=== PATIENT | female | born 1985 | race Caucasian/White ===

== ENCOUNTER → 2019-09-01 12:49 | Outpatient (CLI) | payer OTHER, MEDICAID, SELFPAY ==
--- NOTE | 2019-09-01 12:55 | XR_ITS ---
PROCEDURE: XR TIBIA FIBULA LT 2V CLINICAL INDICATION: Pain Posttraumatic pain COMPARISON: No exams were available for comparison FINDINGS: No fracture, dislocation, lytic change, or blastic change evident. No significant degenerative change IMPRESSION: Negative left tib fib Dictated by: Nacho Calderon MD 09/01/2019 15:36 Electronically signed by Nacho Calderon MD in [place] 09/01/2019 15:36
--- NOTE | 2019-09-01 12:55 | XR_ITS ---
PROCEDURE: XR FOOT WT BEARING LT 3V CLINICAL INDICATION: pain COMPARISON: XR FOOT LT MIN 3V from 08/30/2019 FINDINGS: No fracture or dislocation. No lytic or blastic change. There is normal mineralization. The joint spaces are well-preserved. No significant degenerative/arthritic changes. No erosive changes evident. Other findings:None. IMPRESSION: Negative left foot Dictated by: Nacho Calderon MD 09/01/2019 15:37 Electronically signed by Nacho Calderon MD in [place] 09/01/2019 15:38
== END ==
PROVIDERS: PCP Family Medicine; Visit Provider Podiatrist
DX: M25.572 Pain in left ankle and joints of left foot (principal); M79.672 Pain in left foot
CPT/HCPCS: 73590; 73630

== ENCOUNTER 2019-09-28 08:22 | Outpatient (RCR) | payer OTHER, SELFPAY ==
--- NOTE | 2019-09-28 09:04 | HMH.PTOPEV ---
PT Outpatient Evaluation Rehab PT Outpatient Evaluation Start: 09/28/19 08:55 Freq: Status: Active Protocol: Document 09/28/19 08:55 DONI (Rec: 09/28/19 09:04 DONI [id number]) Electronically Signed By Piero Carter, PT 09/28/19 08:55 Outpatient Therapy Subjective History Subjective History Pt reports tripping and spraining L ankle on 08/30/19. Pt reports 'inverting' L ankle during the injury, and reports 'it had been getting better, but I walked yesterday without anything on it, and now it's hurting more on the outside now.' Pt reports recent Xrays revealed no fx's. Chief Complaint Pain,Stiff,Swelling,Weakness Symptom Type Ache,Throb,Sharp,Dull,Tingling Symptoms Relieved By Rest/Positioning,Ice Symptoms Aggravated By Standing,Walking Prior Functional Limitations Housework,Standing,Walking Current Functional Limitations Housework,Standing,Walking Symptom Description Constant but Variable Level of pain today (0-10) 2 Pain scale - at its best (0-10) 0 Pain scale - at its worst (0-10) 6 Ankle/Foot Eval Gait Observation General Gait Pattern Observation Antalgic Gait Palpation Tenderness left Ankle/Foot Palpation Findings Tenderness Ankle/Foot Palpation Overall Comment 2-3/4 peroneal insertion, ant. tibialis insertion ATF TTP positive ROM Ankle/Foot Dorsiflexion w/Knee Extended 0-12 Active Range Motion (degrees) Ankle/Foot Plantar Flexion Active Range 0-50 of Motion (degrees) Ankle/Foot Eversion Active Range of 0-10 Motion (degrees) Ankle/Foot Inversion Active Range of 0-25 Motion (degrees) Ankle/Foot ROM Limitations Pain MMT Ankle Dorsiflexion Strength Grade 4 Good Ankle Plantarflexion Strength Grade 4 Good Foot Eversion Strength Grade 4- Good- Foot Inversion Strength Grade 4- Good- Special Tests Ankle Anterior Drawer Test Positive Left Talar Tilt Test Positive Left Outpatient Therapy Assessment Impairments Problems/Impairmments Palpation Tenderness,Impaired Range of Motion,Impaired Strength,Impaired Gait Pattern ,Impaired Walking,Impaired Standing,Impaired Household Care,Increased Edema, Subjective C/O Pain,Impaired Self Care/Self Management Prognosis Rehab Potential Good
== END 2019-09-28 08:27 | disposition home or self-care (01) ==
LOC: PT 08:22
PROVIDERS: PCP Family Medicine; Visit Provider Podiatrist
DX: M25.572 Pain in left ankle and joints of left foot (principal)
CPT/HCPCS: 97163

== ENCOUNTER → 2019-11-03 10:36 | Outpatient (POV) | payer OTHER, SELFPAY | PROVIDERS: Visit Provider Dermatology | DX: Z00.00 Encounter for general adult medical examination without abnormal findings (principal) ==

== ENCOUNTER → 2022-12-14 10:11 | Outpatient (CLI) | payer OTHER, SELFPAY ==
--- NOTE | 2022-12-14 | US_ITS ---
FINAL REPORT CLINICAL HISTORY: .pelvic pain FINDINGS: Transvaginal sonographic images of the pelvis were obtained. The uterus is somewhat enlarged, measuring 10.0 x 5.4 x 5.3 cm. The endometrium measures 15 mm, which is borderline thickened. There is somewhat heterogeneity of the uterine echotexture of uncertain significance. Adenomyosis is not excluded. A scar is noted. There are multiple nabothian cysts in the fundus. The right ovary measures 2.2 cm in length and left ovary measures 2.8 cm in length. Normal blood flow seen to the ovaries. There is no evidence of free fluid. IMPRESSION: Somewhat enlarged uterus with heterogeneous echotexture of uncertain significance, adenomyosis is not excluded. Borderline thickening of the endometrium. Reviewed, Interpreted and Dictated by Maverick Brock III, MD Transcribed by Jessica Tobin Authenticated and [facility]
== END ==
PROVIDERS: PCP Nurse Practitioner Family; Visit Provider Nurse Practitioner Family
DX: R10.2 Pelvic and perineal pain (principal)
CPT/HCPCS: 76830

== ENCOUNTER 2024-02-21 16:09 | Emergency (ER) | payer OTHER, SELFPAY ==
[2024-02-21 16:20] VITALS: BP 169/105; PULSE 92; RESP 16; TEMP 36.8; O2SAT 98; BMI 36.3
[2024-02-21 16:30] VITALS: BP 152/103; PULSE 85; O2SAT 97
--- NOTE | 2024-02-21 16:32 | PC.NURSE ---
DR BARRIOS AT BEDSIDE
--- NOTE | 2024-02-21 16:36 | CT_ITS ---
PROCEDURE INFORMATION: Exam: CT Abdomen And Pelvis With Contrast Exam date and time: 02/21/2024 5:08 PM Age: 38 years old Clinical indication: Abdominal pain; Epigastric; Additional info: Epigastric pain rad to back TECHNIQUE: Imaging protocol: Computed tomography of the abdomen and pelvis with contrast. Radiation optimization: All CT scans at this facility use at least one of these dose optimization techniques: automated exposure control; mA and/or kV adjustment per patient size (includes targeted exams where dose is matched to clinical indication); or iterative reconstruction. Contrast material: ISOVUE; Contrast volume: 75 ml; Contrast route: IV; COMPARISON: No relevant prior studies available. FINDINGS: Diaphragm: Tiny hiatal hernia. Liver: Mild hepatic steatosis. No liver lesions or hepatomegaly. Gallbladder and bile ducts: Status post cholecystectomy. No significant biliary ductal dilitation. Pancreas: Normal. No ductal dilation. Spleen: Normal. No splenomegaly. Adrenal glands: Normal. No mass. Kidneys and ureters: Normal. No hydronephrosis. Stomach and bowel: Unremarkable. No obstruction. No mucosal thickening. Appendix: No evidence of appendicitis. Intraperitoneal space: Unremarkable. No free air. No significant fluid collection. Vasculature: Minimal atherosclerotic disease without aneurysm. Lymph nodes: Unremarkable. No enlarged lymph nodes. Urinary bladder: Unremarkable as visualized. Reproductive: Unremarkable as visualized. Bones/joints: Mild L4-L5 and moderate L5-S1 degenerative disc disease. Soft tissues: Diastasis of the inferior rectus abdominis muscles with intraperitoneal fat herniating between the muscles and extending laterally anterior to the muscles. Surgical clip adjacent to the left rectus abdominis muscle. IMPRESSION: 1. No acute findings. 2. Mild hepatic steatosis. 3. Status post cholecystectomy. No biliary ductal dilatation.
--- NOTE | 2024-02-21 16:44 | ED_ITS ---
Discharge Plan Disposition Patient Disposition: Home, Self-Care Condition: Good Prescriptions Prescriptions: New pantoprazole 40 mg tablet,delayed release (DR/EC) 40 mg PO DAILY Qty: 30 0RF ondansetron HCl 4 mg tablet 4 mg PO Q8H PRN (Reason: nausea and vomiting) 4 Days Qty: 12 0RF No Action metoprolol succinate 50 mg tablet extended release 24 hr 50 mg PO DAILY Patient Comments: TAKE 1 TABLET BY MOUTH ONCE DAILY norethindrone (contraceptive) 0.35 mg tablet 0.35 mg PO DAILY Qty: 84 3RF Referrals Follow up/Referrals: Chirag Kamara MD [Primary Care Provider] - See instructions Activity Restrictions/Add. Instructions Additional Instructions/Restrictions: You were evaluated in the emergency department today. Please follow-up closely with your primary care provider. They can refer you to gastroenterology or general surgery for further evaluation and management as they see fit. Eat a bland diet. Try eating smaller, more frequent meals. 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 Take Zofran as needed for nausea. Avoid NSAIDs such as ibuprofen and Aleve. Return to the emergency department for new or worsening symptoms. Clinical Impressions Clinical Impression: Intermittent upper abdominal pain Stand Alone Forms Stand Alone Forms: Work/School Release Instructions Patient Instructions: DI for Acute Abdominal Pain Discharge ED Provider: Dominga Moe General Adult HPI General Chief complaint: Abdominal Pain Stated complaint: abd pain up to throat on Time Seen by Provider: 02/21/24 16:20 Mode of Arrival: Ambulatory Source of Information: Spouse Limitations: No Limitations Description of Symptoms (Recalled from ER Triage Doc. by RN): PT C/O UPPER ABDOMINAL/EPIGASTRIC PAIN THAT IS SQUEEZING. PAIN RADIATES TO BACK. STARTED AROUND EASTER. OCCASIONAL WORSE AFTER EATING. History of Present Illness HPI narrative: This patient is a 38-year-old female with a history of obesity, endometriosis, hypertension, and prior cholecystectomy presenting to the emergency department for evaluation with concern for upper abdominal pain. Patient reports that since and eating a lot of barbecue and Easter gathering, she has had intermittent epigastric pain radiating to her back. Sometimes it radiates up into her throat. She states that she thought maybe it was heartburn, so she took Tums, Zantac, and Prilosec with no improvement. She is also tried Tylenol and ibuprofen, but the pain continues. It seems to be made worse by eating. She notes that sometimes it also is in her right upper quadrant and her left upper quadrant. No fevers, vomiting, changes bowel movements, or other concerns. She does have nausea associate with this. Of note, she states that when she had her gallbladder issue, she did have gallstone pancreatitis and this feels similar to that. She notes that she stopped taking her blood pressure medication because she thought this could have been causing her issues, but she denies any other medication changes as of late. Related Data Home Medications Medication Instructions Recorded Confirmed metoprolol succinate 50 mg 50 mg PO DAILY 01/01/23 01/01/23 tablet,extended release 24 hr Previous Rx's Medication Instructions Recorded norethindrone (contraceptive) 0.35 0.35 mg PO DAILY #84 tabs 01/01/23 mg tablet ondansetron HCl 4 mg tablet 4 mg PO Q8H PRN nausea and 02/21/24 vomiting 4 days #12 tabs pantoprazole 40 mg tablet,delayed 40 mg PO DAILY #30 tabs 02/21/24 release Allergies Allergy/AdvReac Type Severity Reaction Status Date / Time Penicillins [PENICILLINS] Allergy Mild Verified 01/01/23 09:12 [facility] Disclaimer: The information contained in this section may have been updated after the patient was seen, as this information can be updated by other users. Medical History Migraine Ocular migraine Endometriosis Pelvic pain delivery delivered Sprain of deltoid ligament of left ankle, subsequent encounter Sprain of anterior talofibular ligament of left ankle Ankle sprain and strain Surgical History History of cholecystectomy Family History Other Coronary artery disease Diabetes FHx: mental illness Heart attack Hyperlipidemia Hypertension Thyroid disorder Social History Smoking Status: Never smoker alcohol intake: never substance use type: denies use current occupational status: unemployed Travel in the last 8 weeks: None household members: family housing: house ROS Obtained: Yes All systems reviewed & no additional complaints except as documented Physical Exam General General appearance: alert, in no apparent distress and obese Head Head exam: atraumatic and normocephalic Eye Eye exam: Present normal appearance, PERRL and EOMI ENT ENT exam: Present normal exam, normal oropharynx, mucous membranes moist and normal external ear exam Neck Neck exam: Present normal inspection, full ROM and trachea midline; Absent tenderness Chest Chest inspection: Present normal inspection and symmetric chest wall rise; Absent tenderness Respiratory Respiratory exam: Present normal lung sounds bilaterally; Absent respiratory distress, wheezes, stridor or accessory muscle use Cardiovascular Cardiovascular exam: Present regular rate and normal rhythm Abdominal Exam Abdominal exam: Present soft; Absent distention, tenderness or guarding Extremities Exam Extremities exam: Present normal inspection, full ROM and normal capillary refill; Absent tenderness or edema Back Exam Back exam: Present normal inspection and full ROM; Absent tenderness Neurological Exam Neurological exam: Present alert, oriented X3, CN II-XII intact and normal gait; Absent motor sensory deficit Psychiatric Psychiatric exam: Present normal affect and normal mood Skin Skin exam: Present warm and dry Medical Decision Making Medical Records Medical records reviewed: Yes I reviewed the patient's medical records. Connor Inquiry Pt receiving controlled substance: No Vital Signs: 02/21/24 16:20 02/21/24 16:30 02/21/24 17:00 Temperature 98.2 F Temperature Source Oral Pulse Rate 85 85 Pulse Rate [Radial] 92 H Respiratory Rate 16 Blood Pressure 152/103 H 141/103 H Blood Pressure [Right Arm] 169/105 H Blood Pressure Mean 123 117 Blood Pressure Mean [Right Arm] 126 Blood Pressure Source Blood Pressure Source [Right Arm] Automatic Cuff Blood Pressure Position [Right Arm] Sitting 02 Sat by Pulse Oximetry 98 97 97 Oxygen Delivery Method Room Air 02/21/24 18:00 02/21/24 18:33 Temperature 98.0 F Temperature Source Oral Pulse Rate 80 80 Pulse Rate [Radial] Respiratory Rate 18 18 Blood Pressure 139/99 H 138/98 H Blood Pressure [Right Arm] Blood Pressure Mean 109 Blood Pressure Mean [Right Arm] Blood Pressure Source Automatic Cuff Blood Pressure Source [Right Arm] Blood Pressure Position [Right Arm] 02 Sat by Pulse Oximetry 100 Oxygen Delivery Method Room Air Lab Data Lab results reviewed: Yes I reviewed the patient's lab results. Lab Results 02/21/24 16:30: WBC 9.6, RBC 4.68, Hgb 14.6, Hct 43.4, MCV 92.6, MCH 31.1, MCHC 33.6, RDW 13.4, Plt Count 409, MPV 7.5, Neut % (Auto) 61.7, Lymph % (Auto) 26.1, [place] % (Auto) 6.2, Eos % (Auto) 5.3, Baso % (Auto) 0.7, Neut # (Auto) 5.9, Lymph # (Auto) 2.5, [place] # (Auto) 0.6, Eos # (Auto) 0.5 H, Baso # (Auto) 0.1, Sodium 140, Potassium 4.2, Chloride 107, Carbon Dioxide 26, Anion Gap 11.2, BUN 15, Creatinine 0.90, Estimated Creat Clear 111, Estimated GFR 71, Est GFR ( Amer) 86, Glucose 131 H, Calcium 9.5, Total Bilirubin 0.3, AST 40 H, ALT 61, Alkaline Phosphatase 86, Troponin I < 0.01, Total Protein 8.0, Albumin 4.5, G lobulin 3.5 H, Albumin/Globulin Ratio 1.3, Lipase 274, Serum HCG, Qual Negative 02/21/24 17:40: Urine Color Yellow, Urine Appearance Clear, Urine pH 6.5, Ur Specific [place] <= 1.005, Urine Protein Negative, Urine Glucose (UA) Negative, Urine Ketones Negative, Urine Blood 2+, Urine Nitrate Negative, Urine Bilirubin Negative, Urine Urobilinogen 0.2, Ur Leukocyte Esterase Negative, Urine RBC 3-5, Urine WBC None, Ur Squamous Epith Cells Occasional, Urine Bacteria None 02/21/24 16:30 02/21/24 16:30 Orders (Tests/Meds): ED MEDICATIONS Discontinued Medications Generic Name Dose Route Start Last Admin Trade Name Freq PRN Reason Stop Dose Admin Belladonna Alkaloids 60 ml 02/21/24 16:37 02/21/24 16:49 Belladonna Alkaloids 60 Ml Ml PO 02/21/24 16:38 60 ml ONCE ONE Administration Famotidine 20 mg 02/21/24 16:37 02/21/24 16:50 Famotidine 20mg/2ml Vial IV 02/21/24 16:38 20 mg ONCE ONE Administration Lactated Ringer's 1,000 mls @ 999 mls/hr 02/21/24 16:37 02/21/24 16:49 Lactated Ringer's 1000 Ml Bag IV 02/21/24 17:37 999 mls/hr .Q1H1M ONE Administration Metoclopramide HCl 5 mg 02/21/24 16:38 02/21/24 16:49 Metoclopramide Hcl 10mg/2ml Vial IVP 02/21/24 16:39 5 mg ONCE ONE Administration Sodium Chloride 8 ml 02/21/24 16:37 Sodium Chloride 0.9% 10ml Vial IV 03/22/24 16:36 NEEDED PRN dilute pepcid ORDERS Category Date Time Status CT abdomen pelvis w con Stat Cat Scan 02/21/24 16:36 Completed Complete Blood Count Auto Diff Stat Lab 02/21/24 16:30 Completed Comprehensive Metabolic Panel Stat Lab 02/21/24 16:30 Completed Lipase Stat Lab 02/21/24 16:30 Completed Serum [HCG Qualitative, Serum] Stat Lab 02/21/24 16:30 Completed Troponin I Stat Lab 02/21/24 16:30 Completed Urinalysis and Microscopic Stat Lab 02/21/24 17:40 Completed ECG Data Tracing #1: I reviewed this ECG and interpreted as documented below: Normal sinus rhythm with a ventricular rate of [address] changes concerning for ischemia. Normal axis and intervals. ECG initial impression date: 02/21/24 ECG initial impression time: 17:03 Medical Decision Narrative: In summary, this patient is a 38-year-old female presenting to the Emergency Department for evaluation of epigastric abdominal pain radiating to her back and up into her throat. Differential diagnoses considered include but are not limited to pancreatitis, hepatitis, GERD, peptic ulcer disease, gastroparesis, ACS. Ruling out the most morbid conditions drove assessment. It should be noted patient's history includes obesity and hypertension which are not at goal therapy. This complicates all aspects of care by increasing patient's risk for morbidity. I reviewed patient's past medical records and noted previous cardiology evaluation at which point the patient was given a traffic monitor specialist. On exam, the patient is well-appearing with reassuring vital signs on cardiac telemetry. Cardiopulmonary and abdominal exams are benign. Workup included CBC, CMP, lipase, test, troponin, EKG, urinalysis, and CT abdomen pelvis with IV contrast. She was given a bolus of IV fluids as well as IV Pepcid, Reglan, and an oral GI cocktail. I independently interpreted CT scan prior to the radiologist read and noted no obvious acutely concerning abnormalities such as obstruction or inflammation. Please see their read for final interpretation. they noted hepatic steatosis, which I notified the patient of. Advise dietary changes.. Labs were obtained that demonstrated mildly elevated AST, likely related to hepatic steatosis. On reassessment, patient is resting comfortably with benign abdominal exam. At this time, feel that she is appropriate for discharge. Advised that she follow- up very closely with GI for further evaluation and management, as she may benefit from endoscopy or other testing to evaluate why she has this persistent gastric pain. She was given strict return precautions and was discharged with prescription for PPI and Zofran. Critical Care Critical Care Time Critical Care Time: No
[2024-02-21 16:45] LABS: Basophils # 0.1 K/mm3 (0-0.2); Basophils % 0.7 % (0.1-2.0); Eosinophils # 0.5 K/mm3 (0.0-0.4); Eosinophils % 5.3 % (0.1-12.0); Hematocrit 43.4 % (37.0-47.0); Hemoglobin 14.6 g/dL (12.2-16.2); Lymphocytes # 2.5 K/mm3 (0.7-4.5); Lymphocytes % 26.1 % (10-50); Mean Corpuscular HGB Conc 33.6 g/dL (31.8-35.4); Mean Corpuscular Hemoglobin 31.1 pg (27.0-31.2); Mean Corpuscular Volume 92.6 fl (81-99); Mean Platelet Volume 7.5 fl (7.4-10.4); Monocytes # 0.6 K/mm3 (0.1-1.0); Monocytes % 6.2 % (1.7-9.3); Neutrophils # 5.9 K/mm3 (1.8-7.8); Neutrophils % 61.7 % (37.0-80.0); Platelet Count 409 K/mm3 (142-424); Red Blood Count 4.68 M/mm3 (4.20-5.40); Red Cell Distribution Width 13.4 % (11.5-17.5); White Blood Count 9.6 K/mm3 (4.8-10.8)
[2024-02-21 16:48] LABS: Chloride 107 mmol/L (98-107); Potassium 4.2 mmoL/L (3.5-5.1); Sodium 140 mmol/L (136-145)
[2024-02-21] MEDS: LACTATED RINGERS 1000ML 1,000 ML 999 ML IV (16:49)
[2024-02-21] MEDS: BELLADONNA ALKALOIDS 60 ML ML PO (16:49)
[2024-02-21] MEDS: METOCLOPRAMIDE HCL 10MG/2ML VIAL 5 MG IVP (16:49)
[2024-02-21 16:50] LABS: Alanine Aminotransferase 61 U/L (12-78); Aspartate Amino Transferase 40 U/L (14-36); Blood Urea Nitrogen 15 mg/dl (7-17); Creatinine Clearance Estimated 111 mL/min (50-200); Estimated Glomerular Filt Rate 71 ml/min (>60); GFR (African American) 86 ML/MIN (>60)
[2024-02-21] MEDS: FAMOTIDINE 20MG/2ML VIAL 20 MG IV (16:50)
[2024-02-21 16:51] LABS: Albumin Level 4.5 g/dl (3.5-5.0); Albumin/Globulin Ratio 1.3 (1.1-1.8); Alkaline Phosphatase 86 U/L (38-126); Anion Gap 11.2 mEq/L (5-15); Bilirubin,Total 0.3 mg/dl (0.2-1.3); Calcium 9.5 mg/dl (8.4-10.2); Carbon Dioxide 26 mmol/L (22.0-30.0); Globulin 3.5 g/dL (1.3-3.2); Glucose 131 mg/dl (74-100); Lipase 274 U/L (23-300)
[2024-02-21 16:53] LABS: HCG Qualitative, Serum Negative (Negative)
[2024-02-21 17:00] VITALS: BP 141/103; PULSE 85; O2SAT 97
--- NOTE | 2024-02-21 17:02 | ECG_ITS ---
APPROVED REPORT Exam: Resting ECG HR:86 bpm ECG Measurements Heart Rate 86 AXES AK 156 P 60 QRSd 79 QRS 50 QT 380 T 55 QTc 423 Conclusion SINUS RHYTHM LOW QRS VOLTAGE IN PRECORDIAL LEADS [QRS DEFLECTION < 1.0 mV IN CHEST LEADS] BORDERLINE ECG Electronically signed by : EWA BARRIOS, 02/22/2024 01:27:36
--- NOTE | 2024-02-21 17:04 | PC.NURSE ---
PT TO CT
[2024-02-21 17:11] LABS: Troponin I < 0.01 ng/ml (0.00-0.034)
--- NOTE | 2024-02-21 17:38 | PC.NURSE ---
PT TO BR
--- NOTE | 2024-02-21 17:41 | PC.NURSE ---
PT PROVIDED WATER AT THIS TIME
[2024-02-21 17:44] LABS: Microscopic, Urine URINE MICROSCOPIC (MICROSCOPIC)
[2024-02-21 18:00] VITALS: BP 139/99; PULSE 80; RESP 18; O2SAT 100
[2024-02-21 18:19] LABS: Appearance,Urine CLEAR (Clear); Bilirubin,Urine Negative (Negative); Blood, Urine 2+ (Negative); Color,Urine YELLOW (Yellow); Glucose,Urine (UA) Negative (Negative); Ketones,Urine Negative (Negative); Leukocyte Esterase,Urine Negative (Negative); Nitrate,Urine Negative (Negative); PH,Urine 6.5 (5.0-8.5); Protein,Urine Negative (Negative); Specific Gravity, Urine <= 1.005 (1.005-1.030); Urobilinogen,Urine 0.2 EU/dl (0.2)
[2024-02-21 18:33] VITALS: BP 138/98; PULSE 80; RESP 18; TEMP 36.7; O2SAT 98
[2024-02-21 18:33] LABS: Squamous Epithelial Cell,Urine Occasional #/hpf (0-5)
== END 2024-02-21 18:46 | disposition home or self-care (01) ==
PROVIDERS: Emergency Provider Emergency Medicine; PCP Internal Medicine Adolescent Medicine
DX: R10.10 Upper abdominal pain, unspecified (principal); K76.0 Fatty (change of) liver, not elsewhere classified; I10 Essential (primary) hypertension
CPT/HCPCS: 74177; 80053; 81001; 83690; 84484; 84703; 85025; 93005; 96361; 96374; 96375; 99284; J7120

== ENCOUNTER 2024-03-26 11:15 | Outpatient (CLI) | payer OTHER, SELFPAY ==
--- NOTE | 2024-03-26 11:20 | XR_ITS ---
FINAL REPORT CLINICAL HISTORY: WHEEZING ON AUSCULATION COMPARISON: None FINDINGS: No acute pulmonary density is evident. There is no evidence of effusion or other pleural disease. The mediastinum has a normal appearance. The cardiac silhouette is unremarkable. IMPRESSION: Unremarkable chest exam. Reviewed, Interpreted and Dictated by Ophelia Lane MD Transcribed by Meghan Nixon Authenticated and [facility]
== END 2024-03-26 23:59 | disposition home or self-care (01) ==
LOC: RAD 11:17
PROVIDERS: PCP Internal Medicine Adolescent Medicine; Visit Provider Physician Assistant
DX: R06.2 Wheezing (principal)
CPT/HCPCS: 71046

== ENCOUNTER 2024-08-24 20:03 | Emergency (ER) | payer OTHER, SELFPAY ==
--- NOTE | 2024-08-24 20:07 | ED_ITS ---
<Statement entered by Dominga Moe DO - 08/24/24 22:55> I was consulted by the RIGO, and we discussed the complexity of the problems being addressed. I approved the treatment and management plan for this patient's care in the emergency department, thus performing a substantive portion of the medical decision making. Dominga Moe DO Discharge Plan Prescriptions Prescriptions: New sulfamethoxazole-trimethoprim [Bactrim DS] 800-160 mg tablet 1 tab PO BID 10 Days Qty: 20 0RF No Action metoprolol succinate 50 mg tablet extended release 24 hr 50 mg PO DAILY Patient Comments: TAKE 1 TABLET BY MOUTH ONCE DAILY norethindrone (contraceptive) 0.35 mg tablet 0.35 mg PO DAILY Qty: 84 3RF pantoprazole 40 mg tablet,delayed release (DR/EC) 40 mg PO DAILY Qty: 30 0RF ondansetron HCl 4 mg tablet 4 mg PO Q8H PRN (Reason: nausea and vomiting) 4 Days Qty: 12 0RF Referrals Follow up/Referrals: Chirag Kamara MD [Primary Care Provider] - See instructions Activity Restrictions/Add. Instructions Additional Instructions/Restrictions: As we discussed follow-up with your surgeon tomorrow regarding your surgical site infection. Return to ER for any worsening signs or symptoms including pain redness or drainage fever. Clinical Impressions Clinical Impression: Surgical site infection Instructions Patient Instructions: DI for Skin Abscess Print Language Print Language: Puerto Rican Discharge ED Provider: Dominga Moe General Adult HPI General Chief complaint: Skin/Abscess/Foreign Body Stated complaint: post op 7wks incision in navel w/puss/tender/red Time Seen by Provider: 08/24/24 20:06 History of Present Illness HPI narrative: Patient presents for evaluation of a surgical site infection. Patient had a laparoscopic procedure approximately 7 weeks ago by [facility] in [place]. At her 4-week follow-up she had a developing umbilical trocar site superficial infection. Her surgeon put her on a 5-day course of Keflex. At the time she had a very large area of erythema and induration but no abscess. Patient reports that she took all of her antibiotics and the affected area diminished greatly however she is still having subjective drainage and pain at the trocar site. She denies any fever chills hemoptysis hematochezia melena nausea vomiting diarrhea. She is tolerating oral intake and passing flatus and stool. Related Data Home Medications ?Medication ?Instructions ?Recorded ?Confirmed metoprolol succinate 50 mg 50 mg PO DAILY 01/01/23 01/01/23 tablet,extended release 24 hr Previous Rx's ?Medication ?Instructions ?Recorded norethindrone (contraceptive) 0.35 0.35 mg PO DAILY #84 tabs 01/01/23 mg tablet ondansetron HCl 4 mg tablet 4 mg PO Q8H PRN nausea and 02/21/24 vomiting 4 days #12 tabs pantoprazole 40 mg tablet,delayed 40 mg PO DAILY #30 tabs 02/21/24 release sulfamethoxazole 800 1 tab PO BID 10 days #20 tabs 08/24/24 mg-trimethoprim 160 mg tablet (Bactrim DS) Allergies Allergy/AdvReac Type Severity Reaction Status Date / Time Penicillins (PENICILLINS) Allergy Mild Verified 01/01/23 09:12 [facility] Disclaimer: The information contained in this section may have been updated after the patient was seen, as this information can be updated by other users. Medical History Migraine Ocular migraine Endometriosis Pelvic pain delivery delivered Sprain of deltoid ligament of left ankle, subsequent encounter Sprain of anterior talofibular ligament of left ankle Ankle sprain and strain Surgical History History of cholecystectomy Family History Other Coronary artery disease Diabetes FHx: mental illness Heart attack Hyperlipidemia Hypertension Thyroid disorder Social History Smoking Status: Never smoker alcohol intake: never substance use type: denies use current occupational status: unemployed household members: family housing: house Other Medical History Have you received the Flu Vaccine for this season: No Have you received the Pneumonia Vaccine: No ROS Obtained: Yes Systems reviewed as appropriate & no additional complaints except as documented Physical Exam General General appearance: alert and in no apparent distress Respiratory Respiratory exam: Present normal lung sounds bilaterally Cardiovascular Cardiovascular exam: Present regular rate Neurological Exam Neurological exam: Present alert and oriented X3 Medical Decision Making Medical Records Screening: Per USPSTF and CDC recommendations, given the prevalence of disease in our region, it is our hospital?s policy to screen for HIV and viral Hepatitis for all patients aged 18 and over and those with ongoing risk factors. Connor Inquiry Pt receiving controlled substance: No Vital Signs: 08/24/24 20:15 08/24/24 20:32 Temperature 98.2 F 98.2 F Temperature Source Oral Pulse Rate 97 H Pulse Rate [Right] 97 H Respiratory Rate 20 18 Blood Pressure 165/109 H Blood Pressure [Right Arm] 165/109 H Blood Pressure Mean [Right Arm] 127 02 Sat by Pulse Oximetry 97 Oxygen Delivery Method Room Air Orders (Tests/Meds): ED MEDICATIONS Discontinued Medications Generic Name Dose Route Start Last Admin Trade Name Freq PRN Reason Stop Dose Admin Trimethoprim/Sulfamethoxazole 1 each 08/24/24 20:25 Sulfa/Trimethoprim 1 Tablet PO 08/24/24 20:26 ONCE ONE Medical Decision Narrative: In summary patient is a 39-year-old female who presents to the emergency department for evaluation of a slight infection. Patient is hemodynamically stable upon arrival, febrile. Physical exam is remarkable for erythema at the trocar site. There is a honey crusted scab in the center of the umbilicus but no fluctuance no induration there is slight erythema but it does not expand more than a centimeter beyond trocar site.. Differential diagnosis includes resolving infection versus dehiscence versus stitch abscess etc. Initial workup was consi dered with labs and imaging however patient has no red flags including expanding erythema induration fever or fluctuance thus deferred. Given the lack of red flags for any significant serious or life-threatening red flags patient will be referred back to her general surgeon first thing in the morning. We will start the patient on Bactrim as she had a good response from the Keflex by the patient's report however it is possible that the antibiotic course of 5 days was too short. Thus patient was given the first dose of Bactrim with prescription sent to her pharmacy and strict return precautions. Critical Care Critical Care Time Critical Care Time: No
[2024-08-24 20:15] VITALS: BP 165/109; PULSE 97; RESP 20; TEMP 36.8; O2SAT 97; BMI 35.9
[2024-08-24 20:32] VITALS: BP 165/109; PULSE 97; RESP 18; TEMP 36.8; O2SAT 97
[2024-08-24] MEDS: SULFA/TRIMETHOPRIM 1 TABLET 1 EACH PO (20:38)
== END 2024-08-24 20:40 | disposition home or self-care (01) ==
LOC: ER 20:37
PROVIDERS: Emergency Provider Emergency Medicine; PCP Internal Medicine Adolescent Medicine
DX: T81.49XA Infection following a procedure, other surgical site, initial encounter (principal)
CPT/HCPCS: 99283

== ENCOUNTER 2025-06-07 10:55 | Outpatient (CLI) | payer OTHER, SELFPAY ==
--- OUTSIDE RECORDS SUMMARY | 2025-04-27 16:00 | XMS_ITS | Encounter Summary ---
Author Organization Healthcare Address [address] [place] [address] Care Team Providers Care Design Teacher Name Role Phone Rimma Bryan MD Primary Care Provider [phone] Reason for Referral * Consultation (Routine) - Authorized Specialty Diagnoses / Procedures Referred By Contac t Referred To Contact Physical Therapy Diagnoses Pelvic and perineal pain Gibson Hollis MD [address] [place] [address] Phone: tel: fax: [facility] [address] [place] [address] Phone: tel: Referral ID Status Reason Start Date Expiration Date Visits Requested Visits Authorized [id number] Authorized Consult and Treat 04/27/2025 10/27/2026 1 1 Scheduling Instructions Pelvic Discomfort Reason for Visit * Reason Comments Groin Swelling swelling on right si de of vagina, in perineum, and rectumPressure and tender rating today 11/09 but if active day 03/09 Encounter Details Date Type Department Care Team (Late Contact Info) Description 04/27/2025 4:00 PM EDT Office Visit Obstetrics & Gynecology [address] [place] [address] Gibson Hollis MD [address] [place] [address] Pelvic and perineal pain (Primary Dx) Social History Tobacco Use Types Packs/Day Years Used Date Smoking Tobacco: Never Assessed PHQ-2 Answer Date Recorded Patient Health Questionnaire-2 Score 0 04/27/2025 PHQ-9 Answer Date Recorded Patient Health Questionnaire-9 Score 0 01/22/2025 Comments No Sex and Gender Information Value Date Recorded Sex Assigned at Not on file Legal Sex Female 5:56 PM EDT Gender Identity Not on file Sexual Orientation Not on file documented as of this encounter Last Filed Vital Signs Vital Sign Reading Time Taken Comments Blood Pressure 134/84 04/27/2025 4:00 PM EDT Pulse 113 04/27/2025 4:00 PM EDT Temperature 36.9 C (98.4 F) 04/27/2025 4:00 PM EDT Respiratory Rate - - Oxygen Saturation 98% 04/27/2025 4:00 PM EDT Inhaled Oxygen Concentration - - Weight 83.6 kg (184 lb 4.9 oz) 04/27/2025 4:00 P M EDT Height 149.9 cm (4' 11 ) 04/27/2025 4:00 PM EDT Body Mass Index 37.22 04/27/2025 4:00 PM EDT documented in this encounter Functional Status * Over the past 2 weeks, how often have you been bothered by any of the following problems? Question Answer Date of Assessment Author Little interest or pleasure in doing things Not at all 04/27/2025 4:01 PM EDT Guadalupe Church RN Feeling down, depressed, or hopeless Not at all 04/27/2025 4:01 PM EDT Guadalupe Church RN Patient Health Questionnaire -2 Score 0 04/27/2025 4:01 PM EDT Guadalupe Church RN documented as of this encounter Miscellaneous Notes * Progress Notes - Gibson Hollis MD - 04/27/2025 4:00 PM EDT Gynecology Progress Note Subjective 40 yo - 3+ m s/p TLH/BS - has had 2 UTI since - now with pelvic pain/pressure - worse at end of day - No dysuria - otherwise feels good. No F/C. Review of Systems Constitutional: Negative. HENT: Negative. Eyes: Negative. Respiratory: Negative. Cardiovascular: Negative. Gastrointestinal: Negative. Endocrine: Negative. Genitourinary: Positive for pelvic pain. Musculoskeletal: Negative. Skin: Negative. Allergic/Immunologic: Negative. Neurological: Negative. Psychiatric/Behavioral: Negative. All other systems reviewed and are negative. Objective Visit Vitals BP 134/84 Pulse (!) 113 Temp 36.9 ??C (98.4 ??F) Physical Exam Constitutional: Appearance: Normal appearance. Genitourinary: Vulva, bladder and urethral meatus normal. No lesions in the vagina. Right Labia: No rash, tenderness, lesions or skin changes. Left Labia: No tenderness, lesions, skin changes or rash. No vaginal discharge, erythema or tenderness. No vaginal prolapse present. No vaginal atrophy present. Right Adnexa: not tender and no mass present. Left Adnexa: not tender and no mass present. Cervix is absent. Uterus is absent. Pelvic exam was performed with patient in the lithotomy position. HENT: Head: Normocephalic and atraumatic. Right Ear: External ear normal. Left Ear: External ear normal. Pulmonary: Effort: Pulmonary effort is normal. Abdominal: General: Abdomen is flat. Palpations: Abdomen is soft. Musculoskeletal: General: Normal range of motion. Cervical back: Normal range of motion. Neurological: General: No focal deficit present. Mental Status: She is alert and oriented to person, place, and time. Skin: General: Skin is warm and dry. Psychiatric: Mood and Affect: Mood normal. Behavior: Behavior normal. Thought Content: Thought content normal. Judgment: Judgment normal. Vitals and nursing note reviewed. Exam conducted with a informatics spec present. UA WNL Assessment/Plan Assessment & Plan Pelvic and perineal pain Orders: POCT Urinalysis Dipstick Ambulatory referral to Physical Therapy; Future Discussed EXAM findings Suspect Musculo-Skeletal Origin Refer to PFPT WWE as scheduled Voices agreement A total of 22 minutes was spent on this visit with at least more than 50% of the encounter spent incounseling and/or coordinating care including reviewing previous notes, counseling the patient on their identified issues as indicated in the note, discussing previous and/or ordered tests or imaging, prescribing/refilling medications, and documenting the findings in this note, as well as laying out a specific plan of action for this patient. documented in this encounter Plan of Treatment Upcoming Encounters Date Type Department Care Team (Late st Contact Info) Description 02/25/2026 9:15 AM EDT Office Visit Obstetrics & Gynecology [address] [place] [address] Gibson Hollis MD [address] [place] [address] Scheduled Referrals Name Type Priority Associated Diagnoses Order Schedule Ambulatory referral to Physical Therapy Outpatient Referral Routine Pelvic and perineal pain Expected: 04/27/2025 (Approximate), Expires: 10/28/2026 documented as of this encounter Procedures Procedure Name Priority Date/Time Associated Diagnosis Comments POCT URINALYSIS DIPSTICK Routine 04/27/2025 4:21 PM EDT Pelvic and perineal pain documented in this encounter Results * POCT Urinalysis Dipstick (04/27/2025 4:21 PM EDT) POCT Urine Color Yellow POCT Urine Clarity Clear POCT Glucose Urine Negative Negative mg/dL POCT Bilirubin, Urine Negative Negative POCT Ketones, Urine Negative Negative mg/dL POCT Specific [place], Urine 1.015 POCT Blood, Urine Negative Negative POCT pH, Urine 7.0 5.0 to 8.0 POCT Protein, Urine Negative Negative mg/dL POCT Urobilinogen, Urine 0.2 0.2, 1 E.U./dL POCT Nitrite, Urine Negative Negative POCT Leukocyte Esterase, Urine Negative Negative Test Strip Lot Number [id number] Test Strip Lot Expiration 12/27/25 Urine Urine specimen obtained by clean catch procedure / Unknown 04/27/2025 4:21 PM EDT us Gibson Hollis MD POINT OF CARE TEST ENTER/EDIT O RDERABLES Final Result documented in this encounter Visit Diagnoses Diagnosis Pelvic and perineal pain- Primary documented in this encounter Additional Health Concerns Assessment Noted Time PHQ-9 Depression Total Score: 0 01/23/20 8:44 AM EDT A fall risk assessment has been complete d for the patient 04/27/2025 4:01 PM EDT A Body Mass Index follow-up plan has been documented for the patient 04/27/2025 4:31 PM EDT documented as of this encounter Care Teams Design Teacher Relationship Specialty Start Date End Date Rimma Bryan MD [address] [place] [address] PCP - General 02/10/21 documented as of this encounter
[2025-06-07 15:39] LABS: Coronavirus 19, PCR Not Detected (NotDetected); Influenza A, PCR Not Detected (NotDetected); Influenza B, PCR Not Detected (NotDetected)
--- OUTSIDE RECORDS SUMMARY | 2025-06-08 09:57 | XMS_ITS | Encounter Summary ---
Author Organization Healthcare Address [address] [place] [address] Care Team Providers Care Silk Conditioner Name Role Phone Rimma Bryan MD Primary Care Provider [phone] Encounter Details Date Type Department Care Team (Late st Contact Info) Description 04/20/2025 Telephone Obstetrics & Gynecology [address] [place] [address] Gibson Hollis MD [address] [place] [address] Social History Tobacco Use Types Packs/Day Years [...] on file documented as of this encounter Functional Status * Over the [...] as of this encounter Miscellaneous Notes * Telephone Encounter - Viola Joseph - 04/20/2025 2:26 PM EDT Speaking with patient via my chart * Telephone Encounter - Lisa Kauffman - 04/20/2025 2:01 PM EDT Clinical Concern/Question Reason for Call: Pt is having pain and swelling and Dr Hollis needs to see her erica Best contact number: [phone] (mobile) Optimal time of day to reach caller: ANYTIME Additional comments/information from caller: None Note: Please do not reply to this message. Follow-up communication and further actions as a result of this message need to be communicated with the patient directly, if the patient is not active onMyChart. If the patient is active on MyChart, they will receive notification of the communication/outcome via [employer]. documented in this encounter Plan of Treatment Upcoming Encounters Date Type Department Care Team (Late st Contact Info) Description 02/25/2026 9:15 AM EDT Office Visit Obstetrics & Gynecology [address] [place] [address] Gibson Hollis MD [address] [place] [address] documented as of this encounter Visit Diagnoses Not on filedocumented in this encounter Additional Health Concerns Assessment Noted Time PHQ-9 Depression Total Score: 0 01/23/20 25 8:44 AM EDT A fall risk assessment has been complete d for the patient 02/23/2025 1:52 PM EDT A Body Mass Index follow-up plan has been documented for the patient 02/23/2025 2:07 PM EDT documented as of this encounter Care Teams Silk Conditioner Relationship Specialty Start Date End Date Rimma Bryan MD [address] [place] [address] PCP - General 02/10/21 documented as of this encounter
--- OUTSIDE RECORDS SUMMARY | 2025-06-08 09:57 | XMS_ITS | Encounter Summary ---
Author Organization Healthcare Address [address] [place] [address] Care Team Providers Care Matching Machine Operator Name Role Phone Rimma Bryan MD Primary Care Provider [phone] Encounter Details Date Type Department Care Team (Latest Contact Info) Description 04/27/2025 Travel Social History Tobacco Use Types Packs/Day Years [...] at all 04/27/2025 4:01 PM EDT Guadalupe Church, RN Patient Health Questionnaire -2 Score 0 04/27/2025 4:01 PM EDT Guadalupe Church, RN documented as of this encounter Plan of Treatment Upcoming Encounters Date Type Department Care Team (Late st Contact Info) Description 02/25/2026 9:15 AM EDT Office Visit Obstetrics & Gynecology [address] [place] [address] Gibson Hollis MD [address] [place] [address] documented as of this encounter Visit Diagnoses [...] documented as of this encounter Care Teams Matching Machine Operator Relationship Specialty Start Date End Date Rimma Bryan MD [address] [place] [address] PCP - General 02/10/21 documented as of this encounter
--- OUTSIDE RECORDS SUMMARY | 2025-06-08 09:57 | XMS_ITS | Clinical Summary ---
Author Organization [facility] Address [address] [place] [address] Care Team Providers Care Communications Operator Name Role Phone Rimma Brayn MD Primary Care Provider [phone] Allergies Active Allergy Reactions Criticality Noted Date Comments Gluten Meal Nausea High 07/03/2024 Lactose Nausea High 07/03/2024 Latex Rash Medium 07/03/2024 Nickel Rash Low 07/03/2024 Medications propranolol (Inderal) 10 MG tablet every 12 hours. 01/11/2025 Active Encounters Date Type Department Care Team Description 04/27/2025 4:00 PM EDT Office Visit Obstetrics & Gynecology [address] [place] [phone] Gibson Hollis MD Pelvic and perineal pain (Primary Dx) 04/27/2025 Travel 04/26/2025 Travel 04/20/2025 Telephone Obstetrics & Gynecology [address] [place] [address] Gibson Hollis MD from Last 3 Months Family History Medical History Relation Name Comments Conversions - Other Other No famil y history of malignant neoplasm Relation Name Status Comments Other Social History Tobacco Use Types Packs/Day Years [...] on file Sexual Orientation Not on file Last Filed Vital Signs Vital Sign Reading Time Taken Comments Blood Pressure 134/84 04/27/2025 4:00 PM EDT Pulse 113 04/27/2025 4:00 PM EDT Temperature 36.9 C (98.4 F) 04/27/2025 4:00 PM EDT Respiratory Rate 20 01/08/2025 11:18 AM EDT Oxygen Saturation 98% 04/27/2025 4:00 PM EDT Inhaled Oxygen Concentration - - Weight 83.6 kg (184 lb 4.9 oz) 04/27/2025 4:00 P M EDT Height 149.9 cm (4' 11 ) 04/27/2025 4:00 PM EDT Body Mass Index 37.22 04/27/2025 4:00 PM EDT Plan of Treatment Upcoming Encounters Date Type Department Care Team (Late st Contact Info) Description 02/25/2026 9:15 AM EDT Office Visit Obstetrics & Gynecology [address] [place] [address] Gibson Hollis MD [address] [place] [address] Health Maintenance Due Date Last Done Comments [facility]-HIV Screening 1987 [facility]-Hepatitis C Screening 1987 [facility]-/Child/Adol SDOH Screenings 1987 [facility]-Varicella Vaccines (1 of 2 - 13+ 2-dose series) 2000 [facility]- SDOH Screenings 2005 [facility]-Adult SDOH Screenings 2005 [facility]-DTaP,Tdap,and Td Vaccines (1 - Tdap) 2006 [facility]-Hepatitis B Vaccines (1 of 3 - 19+ 3-dose series) 2006 HPV Vaccines (1 - 3-dose SCDM series) 2014 [id number] Vaccine (2 - season) 2025 01/04/2021 [facility]-Influenza Vaccine (#1) 2025 [facility]-Depression Screening 04/27/2026 04/27/2025, 12/30 [facility]-Zoster Vaccines (1 of 2) 2037 [facility]-Obesity Intervention Completed 025, 02/23/2025, 02/11/2025, Additional history exists [facility]-HIB Vaccines Aged Out No longer e ligible based on patient's age to complete this topic [facility]-Hepatitis A Vaccines Aged Out No longer eligible based on patient's age to complete this topic [facility]-IPV Vaccines Aged Out No longer e ligible based on patient's age to complete this topic [facility]-Pneumococcal Vaccine: Pediatrics (0 to 5 Years) and At-Risk Patients (6 to 49 Years) Aged Out No longer eligible based on patient's age to complete this topic [facility]-Rotavirus Vaccines Aged Out No lo nger eligible based on patient's age to complete this topic Procedures Procedure Name Priority Date/Time Associated Diagnosis Comments POCT URINALYSIS DIPSTICK Routine 04/27/2025 4:21 PM EDT Pelvic and perineal pain from Last 3 Months Results * POCT Urinalysis Dipstick (04/27/2025 4:21 PM EDT) POCT Urine Color Yellow POCT Urine Clarity Clear POCT Glucose Urine Negative Negative mg/dL POCT Bilirubin, Urine Negative Negative POCT Ketones, Urine Negative Negative mg/dL POCT Specific [place], Urine 1.015 POCT Blood, Urine Negative Negative POCT pH, Urine 7.0 5.0 to 8.0 POCT Protein, Urine Negative Negative mg/dL POCT Urobilinogen, Urine 0.2 0.2, 1 E.U./dL POCT Nitrite, Urine Negative Negative POCT Leukocyte Esterase, Urine Negative Negative Test Strip Lot Number [id number] Test Strip Lot Expiration 12/27/25 Urine Urine specimen obtained by clean catch procedure / Unknown 04/27/2025 4:21 PM EDT Gibson Hollis MD POINT OF CARE TEST ENTER/EDIT O RDERABLES Final Result from Last [address] [address] [facility] [place] MEDICA[place] Care Teams Communications Operator Relationship Specialty Start Date End Date Rimma Bryan MD [address] [place], [place] [id number] PCP - General 02/10/21
--- OUTSIDE RECORDS SUMMARY | 2025-06-08 09:57 | XMS_ITS | Encounter Summary ---
Author Organization [facility] Address [address] [place] [address] Care Team Providers Care Beverage Host Name Role Phone Rimma Bryan MD Primary Care Provider [phone] Encounter Details Date Type Department Care Team (Latest Contact Info) Description 04/26/2025 Travel Social History Tobacco Use Types Packs/Day [...] on file documented as of this encounter Plan of Treatment Upcoming Encounters Date Type Department Care Team ( Contact Info) Description 02/25/2026 9:15 AM EDT Office Visit Obstetrics & Gynecology [address] [place] [address] Gibson Hollis MD [address] [place] [address] documented as of this encounter [...] documented as of this encounter Care Teams Beverage Host Relationship Specialty Start Date End Date Rimma Bryan MD [address] [place] [address] PCP - General 02/10/21 documented as of this encounter
== END 2025-06-07 23:59 ==
LOC: LAB.DROPOF 06-08 09:44
PROVIDERS: PCP Nurse Practitioner; Visit Provider Nurse Practitioner
DX: J06.9 Acute upper respiratory infection, unspecified (principal)
CPT/HCPCS: 87631

== ENCOUNTER 2025-07-04 12:37 | Emergency (ER) | payer OTHER, SELFPAY ==
[2025-07-04] VITALS (7 sets, daily range): BP systolic 148–176; BP diastolic 103–117; PULSE 86–107; RESP 15–16; TEMP 36.6–37.2; O2SAT 94–99; BMI 35.9
--- OUTSIDE RECORDS SUMMARY | 2025-07-04 12:52 | XMS_ITS | Clinical Summary ---
Author Organization [facility] ([place] Address [address] [place] [address] Care Team Providers Care Damage Inside Adjuster Name Role Phone Chirag Kamara MD Primary Care Provider Allergies Active Allergy Reactions Criticality Noted Date Comments Gluten Nausea Only High 07/03/2024 Lactose Nausea Only High 07/03/2024 Latex Rash Low 07/03/2024 Nickel Rash Low 07/03/2024 Medications albuterol 90 mcg/actuation inhaler Inhale 2 puffs by mouth via inhaler every 6 (six) hours as needed for wheezing. 04/21/2024 Active hydrOXYzine (ATARAX) 10 MG tablet Take 1-2 tablets (10-20 mg total) by mouth 3 (three) times daily as needed for anxiety. 06/04/2024 Active metFORMIN (GLUCOPHAGE-XR) 500 MG 24 hr tablet Take 1 tablet (500 mg total) by mouth 3 (three) times daily. 06/11/2024 Active pantoprazole (PROTONIX) 40 MG tablet Take 1 tablet (40 mg total) by mouth daily. 06/24/2024 Active Active Problems Problem Noted Date Diagnosed Date Anxiety 07/10/2024 Hypertensive disorder 07/10/2024 Obesity (BMI 30.0-34.9) 07/10/2024 PCOS (polycystic ovarian syndrome) 07/10/2024 Fatty liver 07/10/2024 Mild asthma 07/10/2024 Menorrhagia 07/07/2024 Abnormal findings on imaging test 07/07/2024 Endometrial polyp 07/07/2024 Deep endometriosis of the pe lvic peritoneum, other specified sites 07/07/2024 Deep dyspareunia in female 07/07/2024 Secondary dysmenorrhea 07/07/2024 Social History Tobacco Use Types Packs/Day Years Used Date Smoking Tobacco: Never Smokeless Tobacco: Never Tobacco Cessation:Counseling Given: Not Answered Alcohol Use Standard Drinks/Week Comments Not Currently 0 (1 standard drink = 0.6 oz pur e alcohol) Food Insecurity Answer Date Recorded Food run out past 12 months Not on file 05/31 Food did not last past 12 months Not on file 06/12/2024 Employment Answer Date Recorded Help finding and keeping a job Not on file 0 06/12/2024 Family and Community Support Answer Rohan e Recorded Help with Day to Day Activities Not on file 06/12/2024 Feeling Lonely or Isolated Not on file 06/12 Educational Attainment Answer Date Carl rded Speak language other than Citizen [place] at home Not on file 06/12/2024 Want help with school or training Not on file 06/12/2024 Substance Use Answer Date Recorded Used prescription meds for non-medical reasons N ot on file 06/12/2024 Used illegal drugs past 12 months Not on file 06/12/2024 Comments No Sex and Gender Information Value Date Recorded Sex Assigned at Not on file Legal Sex Female 2:06 PM CDT Gender Identity Not on file Sexual Orientation Not on file Last Filed Vital Signs Vital Sign Reading Time Taken Comments Blood Pressure 118/76 07/10/2024 1:00 PM EDT Pulse 93 07/10/2024 1:00 PM EDT Temperature 36.2 C (97.1 F) 07/10/2024 11:38 AM EDT Respiratory Rate 15 07/10/2024 1:00 PM EDT Oxygen Saturation 95% 07/10/2024 1:00 PM EDT Inhaled Oxygen Concentration - - Weight 81.6 kg (180 lb) 07/03/2024 10:07 AM EDT Height 149.9 cm (4' 11 ) 07/03/2024 10:07 AM EDT Body Mass Index 36.36 07/03/2024 10:07 AM EDT Plan of Treatment Health Maintenance Due Date Last Done Comments Depression Screening (12+) 1999 HIV Screening 2002 Hepatitis C Screening 2005 DTAP/TDAP/TD VACCINES (1 - Tdap) 2006 Pneumococcal Vaccine: 0-49 Years (1 of 2 - PCV) 2005 Pap Smear 2008 COVID-19 VACCINE (2 - season) 05/31/202503/2021 Influenza Vaccine (#1) 2025 Tobacco Cessation Counseling and Screening (12+) 07/1007/10/2024 Lipid Panel 07/10/2027 07/10/2024 Medical Devices Implanted Type Area Grainer Machine Device Identifier Shelf Expiration Date Model / Serial / Lot Amniofix Surg 2x6 [id number]-5260 - [id number] Implanted:Qty : 1 on 07/10/2024 by Hillary Wilkins MD at [facility] IMPLANTS N/A: Pelvis [employer] 02/28/2029 APS-5260 / / [id number] Procedures Procedure Name Priority Date/Time Associated Diagnosis Comments LIPID PANEL STAT 07/10/2024 7:31 AM EDT from Last 3 Months or Most Recently Relevant to Health Maintenance Results * (ABNORMAL) Lipid panel (07/10/2024 7:31 AM EDT) Triglycerides 206 0 - 249 mg/dL 07/10/2024 7:59 AM EDT [facility] Cholesterol 228(H) 0 - 199 mg/dL 07/10/2024 7:59 AM EDT [facility] Comment: 200 to 239 mg/dL = Moderate (borderline) >239 mg/dL = High HDL Cholesterol 42 >=40 mg/dL 07/10/2024 7:59 AM EDT [facility] Comment: >=60 mg/dL = Desirable <40 mg/dL = Increased Risk All other components are listed individually or are calculations VLDL Cholesterol 41.2(H) 5 - 40 mg/dL 07/10/2024 7:59 AM EDT [facility] Cholesterol/HDL ratio 5.4(H) 0.0 - 3.2 07/10/2024 7:59 AM EDT [facility] LDl/HDL Ratio 3 0 - 4 07/10/2024 7:59 AM EDT [facility] RISK COMP 5 07/10/2024 7:59 AM EDT [facility] LDL Cholesterol, Calculated 145(H) 0 - 99 mg/dL 07/10/2024 7:59 AM EDT [facility] Blood Venipuncture / Unknown 07/10/2024 7:31 AM EDT 07/10/2024 7:35 AM EDT us Hillary Wilkins MD LAB BLOOD ORDERABLES Final Re sult [facility] [address] [phone] from Last 3 Months or Most Recently Relevant to Health Maintenance Insurance [employer] [facility] Advance Directives For more information, please contact: [phone] * Full Code (Latest Code Status on File) Date Activated Date Inactivated Comments 07/10/2024 6:35 AM 07/10/2024 2:24 PM * Full Code Date Activated Date Inactivated Comments 07/10/2024 5:19 AM 07/10/2024 6:35 AM Care Teams Damage Inside Adjuster Relationship Specialty Start Date End Date Chirag Kamara MD [address] [place] [address] [place] [id number] PCP - General Adolescent Medicine 07/03/24
--- OUTSIDE RECORDS SUMMARY | 2025-07-04 12:52 | XMS_ITS | Clinical Summary ---
Author Organization [facility] Address [address] [place] [address] Care Team Providers Care Track Repairer Helper Name Role Phone Rimma Bryan MD Primary Care Provider [phone] Allergies Active Allergy Reactions Criticality Noted Date Comments Gluten Meal Nausea High 07/03/2024 Lactose Nausea High 07/03/2024 Latex Rash Medium 07/03/2024 Nickel Rash Low 07/03/2024 Medications propranolol (Inderal) 10 MG tablet every 12 hours. 01/11/2025 Active Encounters Date Type Department Care Team Description 04/27/2025 4:00 PM EDT Office Visit Obstetrics & Gynecology [address] [place] [phone] Gibson Hollis MD Pelvic and perineal pain (Primary Dx) 04/27/2025 Travel 04/26/2025 Travel 04/20/2025 Telephone Obstetrics & Gynecology [address] [place] [address] Gibson Hollis MD from Last 3 [...] Visit Obstetrics & Gynecology [address] [place] [address] Gibson Hollis MD [address] [place] [address] Health Maintenance Due Date Last Done Comments [facility]-HIV Screening 1987 [facility]-Hepatitis C Screening 1987 [facility]-Infant/Child/Adol SDOH Screenings 1987 [facility]-Varicella Vaccines (1 of 2 - 13+ 2-dose series) 2000 [facility]- SDOH Screenings 2005 [facility]-Adult SDOH Screenings 2005 [facility]-DTaP,Tdap,and Td Vaccines (1 - Tdap) 2006 [facility]-Hepatitis B Vaccines (1 of 3 - 19+ 3-dose series) 2006 HPV Vaccines (1 - 3-dose SCDM series) 2014 [id number] Vaccine (2 - season) 2025 01/04/2021 [facility]-Influenza [...] Ketones, Urine Negative Negative mg/dL POCT Specific [place], Urine 1.015 POCT Blood, Urine Negative Negative POCT pH, Urine 7.0 5.0 to 8.0 POCT Protein, Urine Negative Negative mg/dL POCT Urobilinogen, Urine 0.2 0.2, 1 E.U./dL POCT Nitrite, Urine Negative Negative POCT Leukocyte Esterase, Urine Negative Negative Test Strip Lot Number [id number] Test Strip Lot Expiration 12/27/25 Urine Urine specimen obtained by clean catch procedure / Unknown 04/27/2025 4:21 PM EDT Gibson Hollis MD POINT OF CARE TEST ENTER/EDIT O RDERABLES Final Result from Last [address] [place] [address] [place] [address] [facility] [place] Care Teams Track Repairer Helper Relationship Specialty Start Date End Date Rimma Bryan MD [address] [place], [place] [id number] PCP - General 02/10/21
--- OUTSIDE RECORDS SUMMARY | 2025-07-04 12:52 | XMS_ITS | Encounter Summary ---
Author Organization [facility] Address [address] [place] [address] Care Team Providers Care Mulling Machine Operator Name Role Phone Rimma Bryan MD Primary Care Provider [phone] Encounter Details Date Type Department Care Team (Late st Contact Info) Description 04/20/2025 Telephone Obstetrics & Gynecology [address] [place] [address] Gibson Hollis MD [address] [place] [address] Social History Tobacco Use Types [...] to see her erica Best contact number: [phone] (mobile) Optimal time of day to reach caller: ANYTIME Additional comments/information from caller: None Note: Please do not reply to this message. Follow-up communication and further actions as a result of this message need to be communicated with the patient directly, if the patient is not active onMyChart. If the patient is active on MyChart, they will receive notification of the communication/outcome via [employer]. documented in this encounter Plan of Treatment Upcoming Encounters Date Type Department Care Team (Late st Contact Info) Description 02/25/2026 9:15 AM EDT Office Visit Obstetrics & Gynecology [address] [place] [address] Gibson Hollis MD [address] [place] [address] documented as of this encounter [...] documented as of this encounter Care Teams Mulling Machine Operator Relationship Specialty Start Date End Date Rimma Bryan MD [address] [place] [address] PCP - General 02/10/21 documented as of this encounter
--- OUTSIDE RECORDS SUMMARY | 2025-07-04 12:52 | XMS_ITS | Referral Summary ---
Author Organization [facility] ([place], [place], [place], [place]) Address [address] [place] [address] Care Team Providers Care News Copy Editor Name Role Phone Chirag Kamara MD Primary [...] Date Carl rded Speak language other than [place] at home Not on file 06/12/2024 Want [...] 07/03/2024 10:07 AM EDT Plan of Treatment Not on file Medical Devices Implanted Type Area Bridge Ironworker Helper Device Identifier Shelf Expiration Date Model / Serial / Lot Amniofix Surg 2x6 Aps-5260 - [id number] Implanted:Qty : 1 on 07/10/2024 by Hillary Wilkins MD at [facility] IMPLANTS N/A: Pelvis [employer] 02/28/2029 APS-5260 / / [id number] Procedures Procedure Name Priority Date/Time Associated Diagnosis Comments LIPID PANEL STAT 07/10/2024 7:31 AM EDT from Last 3 Months or Most Recently Relevant to Health Maintenance Results * (ABNORMAL) Lipid panel (07/10/2024 7:31 AM EDT) Triglycerides 206 0 - 249 mg/dL 07/10/2024 7:59 AM EDT [facility] Cholesterol 228(H) 0 - 199 mg/dL 07/10/2024 7:59 AM EDT [facility] Comment: 200 to 239 mg/dL = Moderate (borderline) >239 mg/dL = High HDL Cholesterol 42 >=40 mg/dL 07/10/2024 7:59 AM EDT [facility] Comment: >=60 mg/dL = Desirable <40 mg/dL = Increased Risk All other components are listed individually or are calculations VLDL Cholesterol 41.2(H) 5 - 40 mg/dL 07/10/2024 7:59 AM EDT [facility] Cholesterol/HDL ratio 5.4(H) 0.0 - 3.2 07/10/2024 7:59 AM EDT [facility] LDl/HDL Ratio 3 0 - 4 07/10/2024 7:59 AM EDT [facility] RISK COMP 5 07/10/2024 7:59 AM EDT [facility] LDL Cholesterol, Calculated 145(H) 0 - 99 mg/dL 07/10/2024 7:59 AM EDT [facility] Blood Venipuncture / Unknown 07/10/2024 7:31 AM EDT 07/10/2024 7:35 AM EDT us Hillary Wilkins MD LAB BLOOD ORDERABLES Final Re sult [facility] [address] [phone] from Last 3 Months or Most Recently Relevant to Health Maintenance Insurance [employer] [facility] [place] [address] [facility] Advance Directives For more information, please contact: [phone] * Full Code (Latest Code Status on File) Date Activated Date Inactivated Comments 07/10/2024 6:35 AM 07/10/2024 2:24 PM * Full Code Date Activated Date Inactivated Comments 07/10/2024 5:19 AM 07/10/2024 6:35 AM Care Teams News Copy Editor Relationship Specialty Start Date End Date Chirag Kamara MD [address] [place] [address] PCP - General Adolescent Medicine 07/03/24
--- NOTE | 2025-07-04 13:15 | XR_ITS ---
PROCEDURE INFORMATION: Exam: XR Chest Exam date and time: 07/04/2025 1:15 PM Age: 40 years old Clinical indication: Cough and other: Production of phlegm; Additional info: Cough, production of phlegm TECHNIQUE: Imaging protocol: Radiologic exam of the chest. Views: 2 views. COMPARISON: CR XR CHEST 2V 03/26/2024 11:24 AM FINDINGS: Lungs: Unremarkable. No consolidation. Pleural spaces: Unremarkable. No gross pleural effusion. No pneumothorax. Heart/Mediastinum: Unremarkable. No cardiomegaly. Bones/joints: Unremarkable. IMPRESSION: No acute findings.
[2025-07-04 13:37] LABS: Coronavirus 19, PCR Not Detected (NotDetected); Influenza A, PCR Not Detected (NotDetected); Influenza B, PCR Not Detected (NotDetected)
--- NOTE | 2025-07-04 13:47 | ED_ITS ---
Discharge Plan Disposition Patient Disposition: Home, Self-Care Condition: Good Prescriptions Prescriptions: New albuterol sulfate 90 mcg/actuation aerosol powdr breath activated 2 inh inhalation Q4H PRN (Reason: cough) Qty: 1 0RF No Action norethindrone (contraceptive) 0.35 mg tablet 0.35 mg PO DAILY Qty: 84 3RF pantoprazole 40 mg tablet,delayed release (DR/EC) 40 mg PO DAILY Qty: 30 0RF Referrals Follow up/Referrals: Chirag Kamara MD [Primary Care Provider, Internal Medicine] - See instructions Activity Restrictions/Add. Instructions Additional Instructions/Restrictions: You can use an albuterol inhaler 2 puffs every 4 hours as needed for your cough. If you have any new or worsening symptoms please return. You may benefit from taking [id number] cough and cold medication as well as continue Tylenol and ibuprofen. Clinical Impressions Clinical Impression: Acute cough, Acute viral syndrome Print Language Print Language: French Discharge ED Provider: Anand Guzman Adult HPI General Chief complaint: Upper Respiratory Infection Stated complaint: SOA-HR 107; BP 167/110, Time Seen by Provider: 07/04/25 13:07 Mode of Arrival: Ambulatory Source of Information: Patient Description of Symptoms (Recalled from ER Triage Doc. by RN): Patient states that since 06/30/25 she has had productive cough and congestion. Patient states she starts coughing and feels like she can't catch her breath. History of Present Illness HPI narrative: This is a 40-year-old female patient, with no significant past medical history or daily medications, who is presenting to the emergency department today for evaluation of cough. Patient states that over the last couple of days she has had rhinorrhea and congestion as well as a sore throat and right sided ear pain. She states last night she developed a cough that is productive of phlegm and she is now experiencing some a burning sensation in the central portion of her chest with coughing. Related Data Previous Rx's ?Medication ?Instructions ?Recorded norethindrone (contraceptive) 0.35 0.35 mg PO DAILY #8 4 tabs 01/01/23 mg tablet pantoprazole 40 mg tablet,delayed 40 mg PO DAILY #30 t abs 02/21/24 release albuterol sulfate 90 mcg/actuation 2 inh inhalation Q4 H PRN cough #1 07/04/25 breath activated powder inhaler ea Allergies Allergy/AdvReac Type Severity Reaction Status Date / Time No Known Allergies Allergy Verified 06/07/25 11:17 [facility] Disclaimer: The information contained in this section may have been updated after the patient was seen, as this information can be updated by other users. Medical History (Updated 07/04/25 @ 14:35 by Anand Guzman DO) Viral upper respiratory infection Migraine Ocular migraine Endometriosis Pelvic pain delivery delivered Sprain of deltoid ligament of left ankle, subsequent encounter Sprain of anterior talofibular ligament of left ankle Ankle sprain and strain Surgical History History of cholecystectomy Family History Other Coronary artery disease Diabetes FHx: mental illness Heart attack Hyperlipidemia Hypertension Thyroid disorder Social History Smoking Status: Never smoker alcohol intake: never substance use type: denies use current occupational status: unemployed Travel in the last 8 weeks?: None household members: family housing: house Have you lived/traveled outside US in past 30 days?: No Contact w/someone who lives/traveled outside US past 30 days?: No Exposure to someone with infectious disease in past 14 days?: No Do you have a fever (greater than 100.4 F or 38 C)?: No Have you tested positive for COVID-19?: No Exposed to someone with COVID-19 in past 14 days?: No Do you have a sore throat?: No Do you have a cough?: Yes Do you have any weakness?: No Do you have any diarrhea?: No Are you experiencing any unusual bleeding?: No Do you have any muscle aches/pain?: No Do you have any abdominal pain?: No Are you experiencing loss of taste or smell?: No Other Medical History Have you received the Flu Vaccine for this season: No Have you received the Pneumonia Vaccine: No ROS Obtained: Yes Systems reviewed as appropriate & no additional complaints except as documented Physical Exam General General appearance: other (See MDM) Respiratory Respiratory exam: Present other (See MDM) Cardiovascular Cardiovascular exam: Present other (See MDM) Neurological Exam Neurological exam: Present other (See MDM) Medical Decision Making Medical Records Medical records reviewed: Yes I reviewed the patient's medical records. Screening: Per USPSTF and CDC recommendations, given the prevalence of disease in our region, it is our hospital?s policy to screen for HIV and viral Hepatitis for all patients aged 18 and over and those with ongoing risk factors. Connor Inquiry Pt receiving controlled substance: No Connor was queried for this patient: No Vital Signs: 07/04/25 12:45 07/04/25 13:01 07/04/25 13:31 Temperature 97.8 F Temperature Source Oral Pulse Rate 107 H 98 H Pulse Rate [Right Brachial] 102 H Respiratory Rate 16 Blood Pressure 150/103 H Blood Pressure [Right Arm] 176/114 H Blood Pressure Mean [Right Arm] 134 Blood Pressure Source [Right Arm] Automatic Cuff Blood Pressure Position [Right Arm] Sitting 02 Sat by Pulse Oximetry 97 96 94 L Oxygen Delivery Method Room Air Room Air Room Air 07/04/25 13:32 07/04/25 13:36 07/04/25 14:00 Temperature Temperature Source Pulse Rate 92 H 86 Pulse Rate [Right Brachial] Respiratory Rate Blood Pressure 150/103 H 169/117 H Blood Pressure [Right Arm] Blood Pressure Mean [Right Arm] Blood Pressure Source [Right Arm] Blood Pressure Position [Right Arm] 02 Sat by Pulse Oximetry 94 L 97 95 Oxygen Delivery Method Room Air Room Air Room Air Orders (Tests/Meds): ORDERS Category Date Time Status CXR 2 view (NOT portable) [XR chest 2V] Stat Exams 07/04/25 13:15 Taken Mini Respiratory Panel Stat Lab 07/04/25 13:30 Received Medical Decision Narrative: In summary, this is a 40-year-old female patient who is presenting to the emergency department for evaluation of upper respiratory symptoms including rhinorrhea and congestion with sore throat and ear pain for the last couple of days with more recent onset burning central chest discomfort with coughing and production of phlegm onset last night. Patient has no comorbidities that would complicate her medical management or care On initial evaluation of the patient they were resting comfortably in no acute distress and nontoxic in appearance. They are hemodynamically stable, s aturating well room air, and are neurologically intact. On physical examination her oropharynx is clear. She has a right sided TM effusion with a good light reflex and no purulence to suggest acute otitis media. Her heart and lungs are clear to auscultation bilaterally. She does have a bronchospastic cough noted during my examination. Abdomen is soft and nontender. Lower extremities are nonedematous and nonerythematous Differential diagnosis includes viral syndrome, pleurisy, bronchitis, pneumonia, among others. This would be a very unusual and very uncommon presentation of pulmonary embolism. The patient is considered very low risk as she has no history of blood clots, no hemoptysis, no exogenous hormone use, no tachycardia, no recent plane travel, no recent surgery, no history of cancer. Workup was initiated with a chest x-ray and viral swabs. Chest x-ray was personally interpreted by me and demonstrates no lobar consolidation or pleural effusion. For the patient's bronchospastic cough we will send her with a prescription for an albuterol inhaler that she can take 2 puffs as needed every 4 hours. I have asked her to return to the emergency department if she has any new or worsening symptoms. At this time all questions been answered and all parties are agreeable with the decision to discharge home. Critical Care Critical Care Time Critical Care Time: No
== END 2025-07-04 14:41 | disposition home or self-care (01) ==
PROVIDERS: Emergency Provider Student in an Organized Health Care Education/Training Program; PCP Internal Medicine Adolescent Medicine
DX: R05.8 Other specified cough (principal); R09.81 Nasal congestion; R07.0 Pain in throat; B34.8 Other viral infections of unspecified site
CPT/HCPCS: 71046; 87631; 99283

== ENCOUNTER 2025-08-28 19:19 | Emergency (ER) | payer OTHER, SELFPAY ==
--- OUTSIDE RECORDS SUMMARY | 2024-04-23 03:30 | XMS_ITS ---
Author Organization [facility] Address [address] [place] [address] Care Team Providers Care Surgical Nurse Name Role Phone Chirag Kamara Primary Care Provider Chirag Kamara Unavailable Unavailable Emilie Salcedo Unavailable [phone] REASON FOR VISIT BP ckeck Encounters Encounter Location Date Provider Diagnosis [facility] [address] [place], [place] [address] 04/23/2024 Emilie Salcedo Plan Of Treatment No Information Progress Notes * Roma ISLASDOB:1985 ( 40 yo F)Acc No.[id number]:04/23/2024 Progress Notes Patient: Roma MENDOZA Provider: Hernan Salcedo APRN :1985 A ge:39 Y S ex:Female Date:04/23/2024 Address:[address], [place], [id number] Pcp:Chirag Kamara Subjective: * Chief Complaints: * 1 . BP ckeck. * Medical History: Objective: * Vitals: Assessment: Plan: * Treatment: * * Electronic signature of Oanh Salcedo APRN on 08/28/2025 at 07:35 PM EST Sign off status: Pending * Provider: Hernan Salcedo APRN Date: 0 04/23/2024 Generated for Mag young/Rowena/eTransmitting on: 10/28/2024 07:35 PM EST
--- OUTSIDE RECORDS SUMMARY | 2024-08-18 10:45 | XMS_ITS ---
Author Organization [facility] Address [address] [place] [address] Care Team Providers Care Analysis Specialist Name Role Phone Chirag Kamara Primary Care Provider [phone] Chirag Kamara Unavailable Unavailable Emilie Salcedo Unavailable [phone] REASON FOR VISIT Infection from Surgery Encounters Encounter Location Date Provider Diagnosis [facility] [address] [place], [place] [address] 08/18/2024 Emilie Salcedo Plan Of Treatment No Information Progress Notes * Roma ISLASDOB:1985 ( 40 yo F)Acc No.[id number]:08/18/2024 Progress Notes Patient: Roma MENDOZA Provider: Hernan Salcedo APRN :1985 A ge:39 Y S ex:Female Date:08/18/2024 Address:[address], [place], [id number] Pcp:Chirag Kamara Subjective: * Chief Complaints: * 1 . Infection from Surgery. * Medical History: Objective: * Vitals: Assessment: Plan: * Treatment: * * Electronic signature of Oanh Salcedo APRN on 08/28/2025 at 07:35 PM EST Sign off status: Pending * Provider: Hernan Salcedo APRN Date: 10/18/2023 Generated for Mag young/Rowena/eTransmitting on: 10/28/2024 07:35 PM EST
--- OUTSIDE RECORDS SUMMARY | 2025-01-02 16:30 | XMS_ITS ---
Author Organization [facility] Address [address] [facility] [address] [place] [address] Care Team Providers Care Circulating Process Inspector Name Role Phone Chirag Kamara Primary Care Provider Chirag Kamara Unavailable Unavailable Migration, Provider Unavailable Unavailable REASON FOR VISIT [facility] [place] Conversion Encounter Medications Medication SIG (Take, Route, Frequency, Duration) Notes Start Date End Date Status Pantoprazole Sodium 40 MG 1 tab(s) orally once a day Active hydrOXYzine HCl 10 MG 1-2 tab(s) orally 3 times a day; Duration: 30 days 03/26/2024 Active Metoprolol Succinate ER 50 MG Take 1 tablet by mouth once daily; Duration: 90 days Active Promethazine-DM 6.25-15 MG/5ML 5 mL orally every 6 hours; Duration: 10 days 07/31/2024 Active Amoxicillin 875 MG 1 tab(s) orally every 12 hours; Duration: 7 days 07/31/2024 Active ALBUTEROL (EQV-PROVENTIL HFA) 90 MCG/INH INHALE 2 PUFFS BY MOUTH EVERY 6 HOURS NEEDED FOR WHEEZING OR SHORTNESS OF BREATH; Duration: 25 *Please review for potential replacement for e-prescription and drug interaction check* Active Encounters Encounter Location Date Provider Diagnosis [facility] [address] [facility] [address] [place] [address] 01/02/2025 Provider Migration Viral URI J06.9 and Acute suppurative otitis media of right ear without spontaneous rupture of tympanic membrane, recurrence not specified H66.001 Assessments Encounter Date Diagnosis (ICD Code) Assessment Notes Treatment Notes Treatment Clinical Notes Section Notes 01/02/2025 Viral URI (ICD-10 - J06.9) 01/02/2025 Acute suppurative otitis media of right ear without spontaneous rupture of tympanic membrane, recurrence not specified (ICD-10 - H66.001) Plan Of Treatment Medication Medication Name Sig Start Date Stop Date Notes Promethazine-DM 6.25-15 MG/5ML 5 mL oral ly every 6 hours; Duration: 10 days 07/31/2024 Amoxicillin 875 MG 1 tab(s) orally ever y 12 hours; Duration: 7 days 07/31/2024 Progress Notes * Roma ISLASDOB:1985 ( 40 yo F)Acc No.[id number]:01/02/2025 Patient: Roma MENDOZA Provider: Max blanc Migration :1985 A ge:39 Y S ex:Female Date:01/02/2025 Address:[address] [place] [id number] Pcp:Chirag Kamara Subjective: * Chief Complaints: * [facility] [place] Conversion Encounter. * Medical History: * Medications: T aking Pantoprazole Sodium 40 MG Tablet Delayed Release 1 tab(s) orally once a day , Taking Metoprolol Succinate ER 50 MG Tablet Extended Release 24 Hour Take 1 tablet by mouth once daily , Taking hydrOXYzine HCl 10 MG Tablet 1-2 tab(s) orally 3 times a day , Taking ALBUTEROL (EQV-PROVENTIL HFA) 90 MCG/INH AEROSOL INHALE 2 PUFFS BY MOUTH EVERY 6 HOURS NEEDED FOR WHEEZING OR SHORTNESS OF BREATH , Notes to Pharmacist: *Please review for potential replacement for e-prescription and drug interaction check* Objective: * Vitals: Assessment: * Assessment: 1. A cute suppurative otitis media of right ear without spontaneous rupture of tympanic membrane, recurrence not specified - H66.001 (Primary) 2 . V iral URI - J06.9 ? Plan: * Treatment: 2. V iral URI Start Promethazine-DM Syrup, 6.25-15 MG/5ML, 5 mL, orally, every 6 hours, 10 days, 200 ML, Refills 0. * * Electronic signature of Prov ider Migration on 08/28/2025 at 07:34 PM EST Sign off status: Pending * Provider: Max blanc Migration Date: 0 01/02/2025 Generated for Mag young/Rowena/Cheritting on: 1 10/28/2024 07:34 PM EST
--- OUTSIDE RECORDS SUMMARY | 2025-03-31 07:00 | XMS_ITS ---
Author Organization [facility] Address [address] [place] [address] Care Team Providers Care Bill Clerk Name Role Phone Chirag Kamara Primary Care Provider Chirag Kamara Unavailable Unavailable REASON FOR VISIT 4 wk FU Encounters Encounter Location Date Provider Diagnosis [facility] [address] [place], [place] [address] 03/31/2025 Chirag Kamara Plan Of Treatment No Information Progress Notes * Roma ISLASDOB:1985 ( 40 yo F)Acc No.[id number]:03/31/2025 Progress Notes Patient: Roma MENDOZA Provider: Eder Kamara MD :1985 A ge:40 Y S ex:Female Date:03/31/2025 Address:[address] , [place], [id number] Subjective: * Chief Complaints: * 1 . 4 wk FU. * Medical History: Objective: * Vitals: Assessment: Plan: * Treatment: * * Electronic signature of Daniel Kamara MD FAAP on 08/28/2025 at 07:35 PM EST Sign off status: Pending * Provider: Eder Kamara MD Date: 0 03/31/2025 Generated for Printi ng/Faxing/eTransmitting on: 10/28/2024 07:35 PM EST
--- OUTSIDE RECORDS SUMMARY | 2025-07-08 06:30 | XMS_ITS ---
Author Organization [facility] Address [address] [facility] [address] [place] [address] Care Team Providers Care Cook Frozen Dessert Name Role Phone Chirag Kamara Primary Care Provider Chirag Kamara Unavailable Unavailable Kendra Edge Unavailable [phone] Allergies No Known Allergies Results Component Value Reference Range Notes Rapid Strep Reviewed date:07/08/2025 03:43:19 PM Interpretation: Performing Lab: Notes/Report: Rapid screen neg REASON FOR VISIT Possible strep throat, cough, congestion, diarrhea, fever, body aches Medications Medication SIG (Take, Route, Frequency, Duration) Notes Start Date End Date Status ALBUTEROL (EQV-PROVENTIL HFA) 90 MCG/INH INHALE 2 PUFFS BY MOUTH EVERY 6 HOURS NEEDED FOR WHEEZING OR SHORTNESS OF BREATH; Duration: 25 Active Amoxicillin-Pot Clavulanate 875-125 MG 1 tablet Orally every 12 hrs; Duration: 5 days 07/09/2025 Active hydrOXYzine HCl 25 MG 1 tablet as needed Orally 3 times a day; Duration: 30 days As needed prn 03/01/2025 Active Ibuprofen 400 MG 1 tablet Orally Thre e times a day prn Active Acetaminophen 325 MG 1 tablet as needed Orally every 6 hrs 200 mg prn Active Vital Signs Temperature 97.7 degrees Fahrenheit 07/08/20 25 Blood pressure systolic 176 mm Hg 07/08/20 25 Blood pressure diastolic 112 mm Hg 025 Heart Rate 104 /min 07/08/2025 Height 4 ft 11 in in 07/08/2025 Weight 176.6 lbs 07/08/2025 BMI 35.66 kg/m2 07/08/2025 Encounters Encounter Location Date Provider Diagnosis [facility] [address] [facility] [address] [place] [address] 07/08/2025 Kendra Edge Sore throat J02.9 ; Acute right otitis media H66.91 and Acute URI J06.9 Assessments Encounter Date Diagnosis (ICD Code) Assessment Notes Treatment Notes Treatment Clinical Notes Section Notes 07/08/2025 Sore throat (ICD-10 - J02.9) Negative strep POCT. See plan below for otitis 07/08/2025 Acute right otitis media (ICD-10 - H66.91) Determined to have otitis media from physical examination findings above. Prescription written for antibiotic. Return precautions discussed. All questions answered. 07/08/2025 Acute URI (ICD-10 - J06.9) Dexamethasone given in office without complication. Plan Of Treatment Medication Medication Name Sig Start Date Stop Date Notes Amoxicillin-Pot Clavulanate 875-125 MG 1 tablet Orally every 12 hrs; Duration: 5 days 07/09/2025 Treatment Notes Assessment Notes Sore throat Negative strep POCT. See plan below for otitis Acute right otitis media Determined to h ave otitis media from physical examination findings above. Prescription written for antibiotic. Return precautions discussed. All questions answered. Acute URI Dexamethasone given in office without complication. Medications Administered Medication Instructions Date of Administration Dosage Notes Dexamethasone 4mg Injection 07/08/2025 4 mg Progress Notes * Roma ISLASDOB:1985 ( 40 yo F)Acc No.[id number]:07/08/2025 Progress Notes Patient: Roma MENDOZA Provider: ASHLEY Crenshaw :1985 A ge:40 Y S ex:Female Date:07/08/2025 Address:[place] [address] [facility] [id number] Pcp:Chirag Kamara Subjective: * Chief Complaints: * 1 . Possible strep throat, cough, congestion, diarrhea, fever, body aches. * HPI: g en: Patient here for symptoms as described above. She has been symptomatic for a few days. * Medical History: H [place], Endometriosis, Adenomyosis. * Medications: T aking Acetaminophen 325 MG Tablet 1 tablet as needed Orally every 6 hrs , Notes to Pharmacist: 200 mg prn, Taking Ibuprofen 400 MG Tablet 1 tablet Orally Three times a day , Notes to Pharmacist: prn, Taking ALBUTEROL (EQV-PROVENTIL HFA) 90 MCG/INH AEROSOL INHALE 2 PUFFS BY MOUTH EVERY 6 HOURS NEEDED FOR WHEEZING OR SHORTNESS OF BREATH , Taking hydrOXYzine HCl 25 MG Tablet 1 tablet as needed Orally 3 times a day As needed, Notes to Pharmacist: prn, Discontinued Nitrofurantoin Monohyd Macro 100 MG Capsule 1 capsule with food Orally every 12 hrs , Discontinued Propranolol HCl 10 MG Tablet 1 tablet on an empty stomach Orally every 12 hrs , Medication List reviewed and reconciled with the patient * Allergies: N .K.D.A. Objective: * Vitals: N urse: nm, Pain: 0, Temp: 97.7, RR: 20, HR: 104, BP: 176/112, Ht: 4 ft 11 in, Wt: 176.6, BMI:35.66. * Examination: G eneral Examination: General P leasant and Cooperative, NAD on RA,. Oral cavity: M oist membranes. Heart: R egular Rate and Rhythm, no murmur, rubs or gallops. HEENT: e rythema on pharyngeal wall, no exudates, erythematous right TM/EAC. Lungs: L CTAB, No wheezes, crackles or rhonchi, Good air movement,. Neurologic Exam: A lert and oriented x 3. Skin: n ormal, no rash. Psych N ormal Mood/Affect. Assessment: * Assessment: 1. S ore throat - J02.9 (Primary) 2 . A cute right otitis media - H66.91? 3. A cute URI - J06.9 Plan: * Treatment: Value Reference Range R apid screen neg * Blayne Richardson 07/08/2025 12:00:08 PM EDT > Notes: Negative strep POCT. See plan below for otitis??2.?Acute right otitis media? Start Amoxicillin-Pot Clavulanate Tablet, 875-125 MG, 1 tablet, Orally, every 12 hrs, 5 days, 10 Tablet, Refills 0.?? Notes: Determined to have otitis media from physical examination findings above. Prescription written for antibiotic. Return precautions discussed. All questions answered.??3.?Acute URI? Notes: Dexamethasone given in office without complication. ?? * Therapeutic Injections: Dexamethasone 4mg Injection : 4 mg (Route: Intramuscular) given by KAYDEN Layton on left deltoid (Acute URI) * Procedure Codes: 8 7880 RAPID STREP, Modifiers: QW , J1100 Dexamethasone Sodium Phosphate 4mg Injection, 21782 THERAPEUTIC ADMINISTRATION * * Sign off status: Completed true * Provider: ASHLEY Crenshaw Date: Generated for Piyushi hannah/Rowena/Cheritting on: 10/28/2024 07:35 PM EST History and Physical Notes * Examination Category Sub-Category Detail Notes Category Not es General Examination HEENT: erythema on pharyngeal wall, no exudates, erythematous right TM/EAC Heart: Regular Rate and Rhy thm, no murmur, rubs or gallops Lungs: LCTAB, No wheezes, c rackles or rhonchi, Good air movement, Skin: normal, no rash Neurologic Exam: Alert and oriented x 3 Oral cavity: Moist membranes General Pleasant and Coopera tive, NAD on RA, Psych Normal Mood/Affect
--- OUTSIDE RECORDS SUMMARY | 2025-08-18 09:15 | XMS_ITS ---
Author Organization [facility] Address [address] [facility] [address] [place] [address] Care Team Providers Care Director Of Perioperative Services Name Role Phone Chirag Kamara Primary Care Provider Chirag Kamara Unavailable Unavailable Kendra Edge Unavailable [phone] REASON FOR VISIT Flu shot Immunizations Vaccine Route Administration Date Status Comme nts FLUCELVAX IM Intramuscular 08/18/2025 Administered Encounters Encounter Location Date Provider Diagnosis [facility] [address] [facility] [address] [place], [place] [address] 08/18/2025 Kendra Edge Encounter for immunization Z23 Assessments Encounter Date Diagnosis (ICD Code) Assessment Notes Treatment Notes Treatment Clinical Notes Section Notes 08/18/2025 Encounter for immunization (ICD-10 - Z23) Plan Of Treatment No Information Progress Notes * Roma ISLASDOB:1985 ( 40 yo F)Acc No.[id number]:08/18/2025 Patient: Roma MENDOZA Provider: ASHLEY Crenshaw :1985 A ge:40 Y S ex:Female Date:08/18/2025 Address[place] [id number] Pcp:Chirag Kamara Subjective: * Chief Complaints: * 1 . Flu shot. * Medical History: Objective: * Vitals: Assessment: * Assessment: 1. E ncounter for immunization - Z23 (Primary) Plan: * Treatment: * Immunizations: FLUCELVAX : 0.5 mL (Route: Intramuscular) given by ISABELLA Dennis on Right Deltoid * Procedure Codes: 9 0661 FLUCELVAX, [address] ADMINISTRATION IMMUNIZATION ONE VACCINE * * Sign off status: Completed true * Provider: ASHLEY Crenshaw Date: 10/18/2024 Generated for Mag young/Rowena/Olinda on: 10/28/2024 07:35 PM EST
[2025-08-28] VITALS (10 sets, daily range): BP systolic 152–154; BP diastolic 86–87; PULSE 77–94; RESP 18–20; TEMP 36.9; O2SAT 95–100; BMI 35.3
--- OUTSIDE RECORDS SUMMARY | 2025-08-28 19:35 | XMS_ITS | Referral Summary ---
Author Organization [employer] ([place], [place], [place], [place], [place]) Address [address] [place] [address] Care Team Providers Care Weatherization Administrator Name Role Phone Chirag Kamara MD Primary Care Provider [phone] Allergies Active Allergy Reactions Criticality Noted Date [...] Date Carl rded Speak language other than Andorran at home Not on file 06/12/2024 Want [...] on file Medical Devices Implanted Type Area Front End Web Designer Device Identifier Shelf Expiration Date Model / Serial / Lot Amniofix Surg 2x6 Aps-5260 - [id number] Implanted:Qty: 1 on 07/10/2024 by Hillary Wilkins MD at [facility] IMPLANTS N/A: Pelvis MIMEDX 02/28/2029 [id number]-5260 / / [id number] Procedures Procedure Name Priority Date/Time Associated Diagnosis Comments LIPID PANEL STAT 07/10/2024 7:31 AM EDT from Last 3 Months or Most Recently Relevant to Health Maintenance Results * (ABNORMAL) Lipid panel (07/10/2024 7:31 AM EDT) Triglycerides 206 0 - 249 mg/dL 07/10/2024 7:59 AM EDT [facility] Cholesterol 228(H) 0 - 199 mg/dL 07/10/2024 7:59 AM EDT [facility] Comment: 200 to 239 mg/dL = Moderate (borderline) >239 mg/dL = High HDL Cholesterol 42 >=40 mg/dL 07/10/2024 7:59 AM EDT [facility] Comment: >=60 mg/dL = Desirable <40 mg/dL = Increased Risk All other components are listed individually or are calculations VLDL Cholesterol 41.2(H) 5 - 40 mg/dL 07/10/2024 7:59 AM EDT [facility] Cholesterol/HDL ratio 5.4(H) 0.0 - 3.2 07/10/2024 7:59 AM EDT [facility] LDl/HDL Ratio 3 0 - 4 07/10/2024 7:59 AM EDT [facility] RISK COMP 5 07/10/2024 7:59 AM EDT [facility] LDL Cholesterol, Calculated 145(H) 0 - 99 mg/dL 07/10/2024 7:59 AM EDT [facility] Blood Venipuncture / Unknown 07/10/2024 7:31 AM EDT 07/10/2024 7:35 AM EDT us Hillary Wilkins MD LAB BLOOD ORDERABLES Final Re sult [facility] [address] [place] [phone] from Last 3 Months or Most Recently Relevant to Health Maintenance Insurance [employer] [facility] Advance Directives For more information, please contact: [phone] * Full Code (Latest Code Status on File) Date Activated Date Inactivated Comments 07/10/2024 6:35 AM 07/10/2024 2:24 PM * Full Code Date Activated Date Inactivated Comments 07/10/2024 5:19 AM 07/10/2024 6:35 AM Care Teams Weatherization Administrator Relationship Specialty Start Date End Date Chirag Kamara MD [address] [place] [address] PCP - General Adolescent Medicine 07/03/24
--- OUTSIDE RECORDS SUMMARY | 2025-08-28 19:35 | XMS_ITS | Clinical Summary ---
Author Organization [employer] ([place], [place], [place], [place], [place]) Address [address] [place] [address] Care Team Providers Care Supervisor Briar Shop Name Role Phone Chirag Kamara MD Primary Care Provider [phone] Allergies Active Allergy Reactions Criticality Noted Date [...] Date Carl rded Speak language other than Micronesian at home Not on file 06/12/2024 Want [...] Pap Smear 2008 COVID-19 VACCINE (2 - 2024- season) 05/31/202503/2021 Influenza Vaccine (#1) 2025 Tobacco Cessation Counseling and Screening (12+) 07/1007/10/2024 Lipid Panel 07/10/2027 07/10/2024 Medical Devices Implanted Type Area Dietitian Helper Device Identifier Shelf Expiration Date Model / Serial / Lot Amniofix Surg 2x6 Aps-5260 - [id number] Implanted:Qty: 1 on 07/10/2024 by Hillary Wilkins MD at [facility] IMPLANTS N/A: Pelvis MIMEDX 02/28/2029 APS-5260 / / [id number] Procedures Procedure Name Priority Date/Time Associated Diagnosis Comments LIPID PANEL STAT 07/10/2024 7:31 AM EDT from Last 3 Months or Most Recently Relevant to Health Maintenance Results * (ABNORMAL) Lipid panel (07/10/2024 7:31 AM EDT) Triglycerides 206 0 - 249 mg/dL 07/10/2024 7:59 AM EDT [facility] Cholesterol 228(H) 0 - 199 mg/dL 07/10/2024 7:59 AM EDT [facility] Comment: 200 to 239 mg/dL = Moderate (borderline) >239 mg/dL = High HDL Cholesterol 42 >=40 mg/dL 07/10/2024 7:59 AM EDT [facility] Comment: >=60 mg/dL = Desirable <40 mg/dL = Increased Risk All other components are listed individually or are calculations VLDL Cholesterol 41.2(H) 5 - 40 mg/dL 07/10/2024 7:59 AM EDT [facility] Cholesterol/HDL ratio 5.4(H) 0.0 - 3.2 07/10/2024 7:59 AM EDT [facility] LDl/HDL Ratio 3 0 - 4 07/10/2024 7:59 AM EDT [facility] RISK COMP 5 07/10/2024 7:59 AM EDT [facility] LDL Cholesterol, Calculated 145(H) 0 - 99 mg/dL 07/10/2024 7:59 AM EDT [facility] Blood Venipuncture / Unknown 07/10/2024 7:31 AM EDT 07/10/2024 7:35 AM EDT us Hillary Wilkins MD LAB BLOOD ORDERABLES Final Re sult [facility] [address] [phone] from Last 3 Months or Most Recently Relevant to Health Maintenance Insurance [employer] [facility] Advance Directives For more information, please contact: [phone] * Full Code (Latest Code Status on File) Date Activated Date Inactivated Comments 07/10/2024 6:35 AM 07/10/2024 2:24 PM * Full Code Date Activated Date Inactivated Comments 07/10/2024 5:19 AM 07/10/2024 6:35 AM Care Teams Supervisor Briar Shop Relationship Specialty Start Date End Date Chirag Kamara MD [address] [place] [address] PCP - General Adolescent Medicine 07/03/24
--- OUTSIDE RECORDS SUMMARY | 2025-08-28 19:35 | XMS_ITS | Clinical Summary ---
Author Organization [facility] Address [address] [place] [address] Care Team Providers Care Disk Recordist Name Role Phone Rimma Bryan MD Primary Care Provider [phone] Allergies Active Allergy Reactions Criticality Noted Date Comments Gluten Meal Nausea High 07/03/2024 Lactose Nausea High 07/03/2024 Latex Rash Medium 07/03/2024 Nickel Rash Low 07/03/2024 Medications propranolol (Inderal) 10 MG tablet every 12 hours. 01/11/2025 Active Family History Medical History Relation Name Comments [...] Visit Obstetrics & Gynecology [address] [place] [address] Gibson Hollis MD [address] [place] [address] Health Maintenance Due Date Last [...] Vaccines (1 - 3-dose SCDM series) 2014 [id number] Vaccine (2 - 2024- season) 2025 01/04/2021 UKY-Influenza Vaccine (#1) 2025 [...] on patient's age to complete this topic Insurance [employer]ICA[employer] [place] Care Teams Disk Recordist Relationship Specialty Start Date End Date Rimma Bryan MD [address] [place] [address] PCP - General 02/10/21
--- OUTSIDE RECORDS SUMMARY | 2025-08-28 19:36 | XMS_ITS | Patient Health Record ---
Author Organization [facility] Address [address] [place] [address] Care Team Providers Care Ortho Rn Name Role Phone Chirag Kamara Primary Care Provider [phone] Chirag Kamara Unavailable Unavailable Migration, Provider Unavailable Unavailable Kendra Edge Unavailable [phone] Allergies No Known Allergies Results Component Value Reference Range Notes Rapid Strep Reviewed date:07/08/2025 03:43:19 PM Interpretation: Performing Lab: Notes/Report: Rapid screen neg Urinalysis Reviewed date:01/11/2025 03:18:22 PM Interpretation: Performing Lab: Notes/Report: Color/Clarity yellow cloudy Leuk neg Nitrite neg Urobili 0.2 Protein neg pH 7.0 Blood neg Sp. Gr. 1.020 Ketone neg Bili neg Glucose neg Reason For Referral No Information Medications Medication SIG (Take, Route, Frequency, Duration) Notes Start Date End Date Status ALBUTEROL (EQV-PROVENTIL HFA) 90 MCG/INH INHALE 2 PUFFS BY MOUTH EVERY 6 HOURS NEEDED FOR WHEEZING OR SHORTNESS OF BREATH; Duration: 25 Active Ibuprofen 400 MG 1 tablet Orally Thre e times a day prn Active Amoxicillin-Pot Clavulanate 875-125 MG 1 tablet Orally every 12 hrs; Duration: 5 days 07/09/2025 Active hydrOXYzine HCl 25 MG 1 tablet as needed Orally 3 times a day; Duration: 30 days As needed prn 03/01/2025 Active Acetaminophen 325 MG 1 tablet as needed Orally every 6 hrs 200 mg prn Active Propranolol HCl 10 MG 1 tablet on an emp ty stomach Orally every 12 hrs; Duration: 30 days 01/11/2025 Active Immunizations Vaccine Route Administration Date Status Comme nts FLUCELVAX IM Intramuscular 08/18/2025 Administered Social History Tobacco Use: Social History Observation Description Date Details (start date - stop date) Never Smoker NA - NA Smoking: Question Answer Notes Are you a: nonsmoker Section Notes: is in the [place], he i s currently deployed, she and her 2 sons-1 of whom has autism and is being homeschooled-are living with grandparents here in [place] with good support. is in the [place], he i s currently deployed, she and her 2 sons-1 of whom has autism and is being homeschooled-are living with grandparents here in [place] with good support. is in the [place], he i s currently deployed, she and her 2 sons-1 of whom has autism and is being homeschooled-are living with grandparents here in [place] with good support. is in the [place], he i s currently deployed, she and her 2 sons-1 of whom has autism and is being homeschooled-are living with grandparents here in [place] with good support. at home with she and her 2 sons-1 of whom has autism and is being homeschooled-are living with grandparents here in [place] with good support. is in the [place], he i s currently deployed, she and her 2 sons-1 of whom has autism and is being homeschooled-are living with grandparents here in [place] with good support. is in the [place], he i s currently deployed, she and her 2 sons-1 of whom has autism and is being homeschooled-are living with grandparents here in [place] with good support. is in the [place], he i s currently deployed, she and her 2 sons-1 of whom has autism and is being homeschooled-are living with grandparents here in [place] with good support. is in the [place], he i s currently deployed, she and her 2 sons-1 of whom has autism and is being homeschooled-are living with grandparents here in [place] with good support. is in the [place], he i s currently deployed, she and her 2 sons-1 of whom has autism and is being homeschooled-are living with grandparents here in [place] with good support. Problems Problem Type SNOMED Code ICD Code Onset Dates Problem Status W/U Status Risk Notes Problem Information temporarily unavailable Essential hypertension (I10) Active confirmed Problem Information temporarily unavailable BMI 35.0-35.9,adult (Z68.35) Active confirmed Problem Information temporarily unavailable Pure hypercholesterolemia (E78.00) Active confirmed Problem Information temporarily unavailable Gastroesophageal reflux disease, unspecified whether esophagitis present (K21.9) Active confirmed Problem Information temporarily unavailable Anxiousness (F41.9) Active confirmed Problem Information temporarily unavailable 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) Active confirmed Vital Signs Heart Rate 104 /min 07/08/2025 Temperature 97.7 degrees Fahrenheit 07/08/2025 Blood pressure diastolic 112 mm Hg 07/08/2025 Height 4 ft 11 in in 07/08/2025 Blood pressure systolic 176 mm Hg 07/08/2025 Weight 176.6 lbs 07/08/2025 BMI 35.66 kg/m2 07/08/2025 Encounters Encounter Location Date Provider Diagnosis [facility] [address] [address] 01/02/2025 Provider Migration Viral URI J06.9 and Acute suppurative otitis media of right ear without spontaneous rupture of tympanic membrane, recurrence not specified H66.001 [facility] [address] [address] 01/11/2025 Chirag Besson Flank pain R10.9 ; Cystitis N30.90 ; Essential hypertension I10 and Anxiousness F41.9 [facility] [address] [address] 01/18/2025 Chirag Besson Essential hypertension I10 and Anxiousness F41.9 [facility] [address] [address] 03/01/2025 Chirag Besson Essential hypertension I10 and Anxiousness F41.9 [facility] [address] [address] 07/08/2025 Kendra Edge Sore throat J02.9 ; Acute right otitis media H66.91 and Acute URI J06.9 [facility] [address] [place], [place] [address] 08/18/2025 Kendra Edge Encounter for immunization Z23 [facility] [address] [place], [place] [address] 07/09/2025 Kendra Edge [facility] [address] [place], [place] [address] 08/03/2025 Chirag Kamara Essential hypertension I10 Assessments Encounter Date Diagnosis (ICD Code) Assessment Notes Treatment Notes Treatment Clinical Notes Section Notes 01/02/2025 Viral URI (ICD-10 - J06.9) 01/02/2025 Acute suppurative otitis media of right ear without spontaneous rupture of tympanic membrane, recurrence not specified (ICD-10 - H66.001) 01/11/2025 Cystitis (ICD-10 - N30.90) 01/11/2025 Flank pain (ICD-10 - R10.9) 01/18/2025 Essential hypertension (ICD-10 - I10) Blood pressure perfect in office today at 120/80. Propanolol has helped blood pressure, continue at current dose twice daily. 03/01/2025 Essential hypertension (ICD-10 - I10) -Has a hx of trouble w/HTN -On propranolol for mood, helping some w/BP -Has been on metoprolol in the past but made her feel very low and caused GI side effx -1w prior OBGYN found her in 160s/100s and reccs for followup -118/96 in office today -BP at home checking w/wrist cuff (116/79 at home) -Will treat HTN as 2/2 ISO worsneing anxiety/possible WC HTN, Pt instructed to keep a log for a month and RTC in 4 weeks 07/08/2025 Sore throat (ICD-10 - J02.9) Negative strep POCT. See plan below for otitis 07/08/2025 Acute right otitis media (ICD-10 - H66.91) Determined to have otitis media from physical examination findings above. Prescription written for antibiotic. Return precautions discussed. All questions answered. 08/03/2025 Essential hypertension (ICD-10 - I10) 08/18/2025 Encounter for immunization (ICD-10 - Z23) 07/08/2025 Acute URI (ICD-10 - J06.9) Dexamethasone given in office without complication. 03/01/2025 Anxiousness (ICD-10 - F41.9) -Since hysterectomy has had a lot of anxiety- -has felt a lot of situational anxiety about the patrick-procedure changes -OB has told Pt that she is healing appropriately, 1y followup reccs -Still having intermittent abdominal pain but feels mostly anxious about it than prior, overall understands that she is likely recovering well but feels irrationally worried about it. -Will trial atarax 25mg q8hrs PRN as needed in addition to continuing propranolol 10mg BiD (whoch was previosuly controlling sx well); RTC in 1mo and then see if scx are improving/followu p on the BP log. 01/18/2025 Anxiousness (ICD-10 - F41.9) Reports improvement with propanolol without side effects or concerns. 01/11/2025 Essential hypertension (ICD-10 - I10) 01/11/2025 Anxiousness (ICD-10 - F41.9) We talked for a long time about surgical issues. I think she will do well. Hopefully she feels reassured. We discussed that although no surgery was risk-free this certainly had a good indication to be done and her group that she is having this done with is very well-respected. Will follow closely. Low-dose propranolol for anxiety and her blood pressure elevation issues Plan Of Treatment Pending Test Test Name Order Date X ray : Chest 03/26/2024 ANAlyzer (DIANNE) Panel 07/11/2022 CBC With Platelet And Differential 07/11 Celiac Disease Dual Screen (tTG, DGP), I gA/IgG 07/11/2022 Comprehensive Metabolic Panel (CMP) 06/30 Lipid Panel 07/11/2022 TSH 07/11/2022 Insurance Providers Payer Name Payer Address Payer Phone Subscriber Number Group Number Insured Name Patient Relationship to Insured Coverage Start Date Coverage End Date [employer] [address] [address] [place] [address] [phone] [id number] Roma Islas Self - patient is the insured Medications Administered Medication Instructions Date of Administration Dosage Notes Dexamethasone 4mg Injection 07/08/2025 4 mg Medical (General) History Medical History History ICD Code HTN Endometriosis adenomyosis Surgical History Surgery Date(Month/Year) x2 c-sections gallbladder endometrial resectioning, uterine polyps and fibroids removed 07/10/24 Complete Hysterectomy 12/2024 Hospitalization History Reason Date(Month/Year) Total Hysterectomy-[facility] 01/17 27 child pancreatitis 2010
--- NOTE | 2025-08-28 19:38 | XR_ITS ---
PROCEDURE INFORMATION: Exam: XR Right Tibia and Fibula Exam date and time: 08/28/2025 7:46 PM Age: 40 years old Clinical indication: Injury or trauma; Fall; Other: Pain TECHNIQUE: Imaging protocol: Radiologic exam of the right tibia and fibula. Views: 2 views. Total images: 2 COMPARISON: CR XR ANKLE RT MIN 3V 08/28/2025 7:46 PM FINDINGS: Bones/joints: No acute fracture or joint dislocation. Unremarkable joint spaces. No joint effusions. No concerning bone lesions. Soft tissues: Unremarkable soft tissues. IMPRESSION: Negative right tibia and fibula.
--- NOTE | 2025-08-28 19:38 | XR_ITS ---
PROCEDURE INFORMATION: Exam: XR Right Ankle Exam date and time: 08/28/2025 7:46 PM Age: 40 years old Clinical indication: Injury or trauma; Fall; Other: Pain TECHNIQUE: Imaging protocol: Radiologic exam of the right ankle. Views: 3 or more views. Total images: 3 COMPARISON: CR XR FOOT RT MIN 3V 08/28/2025 7:46 PM FINDINGS: Bones/joints: No acute fracture, joint dislocation, or joint effusion. The ankle mortise is maintained. Unremarkable joint spaces. No concerning bone lesions. Soft tissues: Suspect mild anterolateral soft tissue swelling. IMPRESSION: 1. No acute osseous abnormality. 2. Suspect mild anterolateral soft tissue swelling.
--- NOTE | 2025-08-28 19:38 | XR_ITS ---
PROCEDURE INFORMATION: Exam: XR Right Knee Exam date and time: 08/28/2025 7:46 PM Age: 40 years old Clinical indication: Injury or trauma; Fall; Other: Pain TECHNIQUE: Imaging protocol: Radiologic exam of the right knee. Views: 3 views. Total images: 3 COMPARISON: CR XR ANKLE RT MIN 3V 08/28/2025 7:46 PM FINDINGS: Bones/joints: No acute fracture, joint dislocation, or joint effusion. Unremarkable joint spaces. No concerning bone lesions. Soft tissues: Unremarkable soft tissues. IMPRESSION: Negative right knee.
--- NOTE | 2025-08-28 19:38 | XR_ITS ---
PROCEDURE INFORMATION: Exam: XR Left Wrist Exam date and time: 08/28/2025 7:46 PM Age: 40 years old Clinical indication: Injury or trauma; Fall; Other: Pain TECHNIQUE: Imaging protocol: Radiologic exam of the left wrist. Views: 1 or 2 views. Total images: 2 COMPARISON: No relevant prior studies available. FINDINGS: Bones/joints: No acute fracture or joint dislocation. Unremarkable joint spaces. No concerning bone lesions. Soft tissues: Unremarkable soft tissues. IMPRESSION: Negative left wrist.
--- NOTE | 2025-08-28 19:38 | XR_ITS ---
PROCEDURE INFORMATION: Exam: XR Right Foot Exam date and time: 08/28/2025 7:46 PM Age: 40 years old Clinical indication: Injury or trauma; Fall; Other: Pain TECHNIQUE: Imaging protocol: Radiologic exam of the right foot. Views: 3 or more views. Total images: 3 COMPARISON: CR XR ANKLE RT MIN 3V 08/28/2025 7:46 PM FINDINGS: Bones/joints: No acute fracture or joint dislocation. No concerning bone lesions. Unremarkable joint spaces. Soft tissues: Unremarkable soft tissues. IMPRESSION: Negative right foot.
--- NOTE | 2025-08-28 19:49 | ED_ITS ---
<Statement entered by Kasia Cortez DO - 08/29/25 19:30> I was consulted by the RIGO, and we discussed the complexity of problems being addressed. I approve the treatment and management plan for this patient's care in the emergency department, thus performing a substantial portion of the medical decision making. Kasia Cortez DO Discharge Plan Disposition Patient Disposition: Home, Self-Care Condition: Good Prescriptions Prescriptions: No Action norethindrone (contraceptive) 0.35 mg tablet 0.35 mg PO DAILY Qty: 84 3RF pantoprazole 40 mg tablet,delayed release (DR/EC) 40 mg PO DAILY Qty: 30 0RF albuterol sulfate 90 mcg/actuation aerosol powdr breath activated 2 inh inhalation Q4H PRN (Reason: cough) Qty: 1 0RF Referrals Follow up/Referrals: Jim Joshi DO [Staff Physician, Orthopedics] - See instructions Chirag Kamara MD [Primary Care Provider, Internal Medicine] - See instructions Activity Restrictions/Add. Instructions Additional Instructions/Restrictions: Weightbearing as tolerated rest Ice with cold pack for 20 minutes remove may repeat for comfort every hour walking boot for support and swelling Elevate with ankle above your heart as much as possible to help reduce swelling and therefore pain Ibuprofen every 6 hours as needed for pain or inflammation. If needs something more you can take Tylenol every 4 hours as needed Follow-up immediately if new or worsening symptoms or no noticeable improvement over the next 3-5 days. call ortho Saturday for an appointment Clinical Impressions Clinical Impression: Muscle strain of right ankle, Acute wrist pain Instructions Patient Instructions: DI for Muscle Strain, DI for Ankle Pain, DI for Wrist Pain Print Language Print Language: Turkmen Discharge ED Provider: Kasia Cortez General Adult HPI General Chief complaint: Extremity Injury, Lower Stated complaint: AO 08-28 fell off stairs, hurt right leg Time Seen by Provider: 08/28/25 19:38 Mode of Arrival: Ambulatory Source of Information: Patient and Spouse Description of Symptoms (Recalled from ER Triage Doc. by RN): mechelle presents for a right ankle/leg injury after falling down her front porch steps. she missed a step, casuing her foot to roll and then bend completely backwards. she did not hit her head. she did however hit her right knee as well but her cheif complaint is the right ankle/lower leg. History of Present Illness HPI narrative: 40-year-old female presents for right foot/ankle pain, left wrist pain and right knee pain patient states she was walking down the steps and missed a step causing her foot to roll then falling and landing on left wrist. Patient states she did not hit her head. Related Data Previous Rx's ?Medication ?Instructions ?Recorded norethindrone (contraceptive) 0.35 0.35 mg PO DAILY #8 4 tabs 01/01/23 mg tablet pantoprazole 40 mg tablet,delayed 40 mg PO DAILY #30 t abs 02/21/24 release albuterol sulfate 90 mcg/actuation 2 inh inhalation Q4 H PRN cough #1 07/04/25 breath activated powder inhaler ea Allergies Allergy/AdvReac Type Severity Reaction Status Date / Time No Known Allergies Allergy Verified 06/07/25 11:17 [facility] Disclaimer: The information contained in this section may have been updated after the patient was seen, as this information can be updated by other users. Medical History (Updated 08/28/25 @ 20:45 by Tim Foster ([facility]), [employer]) Viral upper respiratory infection Migraine Ocular migraine Endometriosis Pelvic pain delivery delivered Sprain of deltoid ligament of left ankle, subsequent encounter Sprain of anterior talofibular ligament of left ankle Ankle sprain and strain Surgical History History of cholecystectomy Family History Other Coronary artery disease Diabetes FHx: mental illness Heart attack Hyperlipidemia Hypertension Thyroid disorder Social History Smoking Status: Never smoker alcohol intake: never substance use type: denies use current occupational status: unemployed Travel in the last 8 weeks?: None household members: family housing: house Have you lived/traveled outside US in past 30 days?: No Contact w/someone who lives/traveled outside US past 30 days?: No Exposure to someone with infectious disease in past 14 days?: No Do you have a fever (greater than 100.4 F or 38 C)?: No Have you tested positive for COVID-19?: No Exposed to someone with COVID-19 in past 14 days?: No Do you have a sore throat?: No Do you have a cough?: No Do you have any weakness?: No Do you have any diarrhea?: No Are you experiencing any unusual bleeding?: No Do you have any muscle aches/pain?: No Do you have any abdominal pain?: No Are you experiencing loss of taste or smell?: No Other Medical History Have you received the Flu Vaccine for this season: No Have you received the Pneumonia Vaccine: No ROS Obtained: Yes Systems reviewed as appropriate & no additional complaints except as documented Musculoskeletal Musculoskeletal: Reports system reviewed and no additional complaints, except as documented, Reports as per HPI and Reports arthralgias Physical Exam General General appearance: alert and in no apparent distress Respiratory Respiratory exam: Present normal lung sounds bilaterally Cardiovascular Cardiovascular exam: Present regular rate and normal rhythm Extremities Exam Extremities exam: Present tenderness, normal capillary refill and joint swelling Expanded Lower Extremity Exam Right: Knee exam: Present normal inspection and full ROM Lower leg exam: Present normal inspection and full ROM Ankle exam: Present tenderness and swelling Ankle image: 2 1. Swelling Foot/toe exam: Present tenderness and swelling Top foot image: 2 1. Tenderness Neurological Exam Neurological exam: Present alert and oriented X3 Skin Skin exam: Present warm and intact Medical Decision Making Medical Records Medical records reviewed: Yes I reviewed the patient's medical records. Screening: Per USPSTF and CDC recommendations, given the prevalence of disease in our region, it is our hospital?s policy to screen for HIV and viral Hepatitis for all patients aged 18 and over and those with ongoing risk factors. Connor Inquiry Pt receiving controlled substance: No Vital Signs: 08/28/25 19:24 08/28/25 19:32 08/28/25 19:45 Temperature 98.4 F Temperature Source Oral Pulse Rate 82 87 Pulse Rate [Right Radial] 90 Respiratory Rate 20 Blood Pressure Blood Pressure [Right Arm] 154/86 H Blood Pressure Mean Blood Pressure Mean [Right Arm] 108 Blood Pressure Source [Right Arm] Automatic Cuff Blood Pressure Position [Right Arm] Sitting 02 Sat by Pulse Oximetry 100 96 97 Oxygen Delivery Method Room Air Room Air Room Air 08/28/25 20:00 08/28/25 20:00 08/28/25 20:15 Temperature Temperature Source Pulse Rate 84 94 H Pulse Rate [Right Radial] Respiratory Rate Blood Pressure 152/87 H Blood Pressure [Right Arm] Blood Pressure Mean 120 Blood Pressure Mean [Right Arm] Blood Pressure Source [Right Arm] Blood Pressure Position [Right Arm] 02 Sat by Pulse Oximetry 96 98 Oxygen Delivery Method Room Air Room Air 08/28/25 20:30 08/28/25 20:45 08/28/25 21:00 Temperature Temperature Source Pulse Rate 84 88 77 Pulse Rate [Right Radial] Respiratory Rate Blood Pressure Blood Pressure [Right Arm] Blood Pressure Mean Blood Pressure Mean [Right Arm] Blood Pressure Source [Right Arm] Blood Pressure Position [Right Arm] 02 Sat by Pulse Oximetry 97 95 96 Oxygen Delivery Method Room Air Room Air Room Air 08/28/25 21:15 Temperature Temperature Source Pulse Rate 80 Pulse Rate [Right Radial] Respiratory Rate Blood Pressure Blood Pressure [Right Arm] Blood Pressure Mean Blood Pressure Mean [Right Arm] Blood Pressure Source [Right Arm] Blood Pressure Position [Right Arm] 02 Sat by Pulse Oximetry 97 Oxygen Delivery Method Room Air Lab Data Lab results reviewed: Yes I reviewed the patient's lab results. Orders (Tests/Meds): ORDERS Category Date Time Status CT foot RT wo con Stat Cat Scan 08/28/25 20:54 Completed Tibia/fibula XR right 2 views [XR tibia fibula RT 2V] Exams 08/28/25 19:38 Completed Stat Wrist XR left 2 views [XR wrist LT 2V] Stat Exams 08/28/25 19:38 Completed XR ankle RT min 3V Stat Exams 08/28/25 19:38 Completed XR foot RT min 3V Stat Exams 08/28/25 19:38 Completed XR knee RT 3V Stat Exams 08/28/25 19:38 Completed Medical Decision Narrative: In summary patient is a 40-year-old female who presents to the emergency department for evaluation of right ankle/foot and knee pain, left wrist pain status post fall. Patient is dynamically stable upon arrival, afebrile. Right ankle swelling and tenderness to top of foot. Differential diagnosis includes sprain, fracture. Initial workup will be conducted with x-rays, CT due to visualization of possible fracture on x-ray and tenderness at abnormality on x- ray.. Initial inventions include x-rays. Initial workup reviewed by me x-rays. Upon repeat evaluation placed in walking boot. Given this patient appropriate for discharge at this time will discharge home with follow-up to Ortho Critical Care Critical Care Time Critical Care Time: No
--- NOTE | 2025-08-28 20:54 | CT_ITS ---
PROCEDURE INFORMATION: Exam: CT Right Lower Extremity Without Contrast, Foot Exam date and time: 08/28/2025 9:10 PM Age: 40 years old Clinical indication: Injury or trauma; Fall; Sprain or strain; Ankle and foot; Right; Additional info: Tenderness S/P fall TECHNIQUE: Imaging protocol: CT of the right lower extremity without contrast was performed. Exam focused on the foot. Total images: 373 Radiation optimization: All CT scans at this facility use at least one of these dose optimization techniques: automated exposure control; mA and/or kV adjustment per patient size (includes targeted exams where dose is matched to clinical indication); or iterative reconstruction. COMPARISON: CR XR FOOT RT MIN 3V 08/28/2025 7:46 PM FINDINGS: Bones/joints: No acute fracture or joint dislocation. No concerning bone lesions. Unremarkable joint spaces. Ankle mortise is maintained. No tibiotalar joint effusion. Soft tissues: Unremarkable soft tissues. IMPRESSION: Unremarkable CT of the right foot and ankle.
== END 2025-08-28 21:37 | disposition home or self-care (01) ==
PROVIDERS: Emergency Provider Student in an Organized Health Care Education/Training Program; PCP Internal Medicine Adolescent Medicine
DX: S96.911A Strain of unspecified muscle and tendon at ankle and foot level, right foot, initial encounter (principal); M25.561 Pain in right knee; M25.532 Pain in left wrist; W10.8XXA Fall (on) (from) other stairs and steps, initial encounter
CPT/HCPCS: 73100; 73562; 73590; 73610; 73630; 73700; 99284